=== PATIENT | female | born 1960 | race Caucasian/White ===

== ENCOUNTER 2017-01-09 09:44 | Outpatient (CLI) | payer MEDICARE, OTHER ==
--- NOTE | 2017-01-09 15:13 | MRI ---
EXAM: CERVICAL SPINE MRI WITHOUT CONTRAST: HISTORY: Cervical fusion. Cervical radiculopathy. Spondylosis. COMPARISON: 01/20/14. TECHNIQUE: Cervical spine MRI was performed without intravenous Gadolinium administration. Multisequential, mu ltiplanar imaging is performed. FINDINGS: Redemonstration of cervical fusion changes at C4, C5, and C6. Limited evaluation of the marrow sign al intensity due to metallic susceptibility artifact. Remaining cervical vertebrae demonstrate appr opriate T1 marrow signal intensity. No significant STIR hyperintensity to suggest vertebral body ed stacia or ligamentous injury. There is intrinsic T2 hyperintensity involving the ursula and mid brain, nonspecific. Remaining visua lized brain parenchyma is unremarkable. Cervicomedullary junction, cervical cord, and the upper thoracic cord have an overall normal size an d signal intensity. C2-C3: No significant disk-osteophyte complex. No significant central canal stenosis. Neural fora abram are patent. C3-C4: There is a broad-based disk-osteophyte complex that abuts the thecal sac. The degree of arsh tral canal stenosis is not significantly changed. Neural foramen are patent bilaterally. C4-C5: There is a central osteophyte complex that abuts the thecal sac. Mild central canal stenosi s, without T2 hyperintensity in the cord. Neural foramen are patent bilaterally. C5-C6: There is a central osteophyte complex that abuts the thecal sac. There is mild mass effect within the left hemicord, unchanged from the prior exam. There is no T2 hyperintensity in the cord. There is mild to moderate central canal stenosis. Neural foramina are patent. C6-C7: There is a broad-based disk-osteophyte complex that causes mass effect upon the thecal sac a nd effaces the ventral subarachnoid space. There is posterior element hypertrophy. Moderate centra l canal stenosis. No T2 hyperintensity in the cord. Mild bilateral foraminal narrowing. C7-T1: No significant disk-osteophyte complex. No significant central canal stenosis. Neural fora men are patent. IMPRESSION: 1. Essentially stable degenerative change of the cervical spine. 2. Stable fusion changes. POS: [facility]
--- NOTE | 2017-01-09 15:36 | MRI ---
LUMBAR SPINE MRI WITHOUT CONTRAST: History: Lumbar radiculopathy. Back pain. Comparison: None. Correlation: Lumbar spine CT without contrast. Technique: Lumbar spine MRI is performed without intravenous gadolinium administration. Multisequent ial, multiplanar imaging is performed. FINDINGS: There is appropriate T1 marrow signal intensity of the lumbar vertebrae. Lumbar spine vertebral body height is maintained. There is no fracture. No significant STIR hyperintensity to suggest vertebral body edema or ligamentous injury. There is 4.5 mm anterolisthesis of L4 upon L5. Symmetric signal intensity to the psoas muscles. Appropriate signal intensity in the visualized aurea d organs. Conus medullaris terminates at the superior endplate of L1. The overall AP diameter of the central spinal canal is narrowed secondary to congenitally fore-short ened pedicles. T12-L1: Adequate disc hydration. No significant central canal stenosis. Neural foramina are patent. L1-2: Minimal loss of disc space height and minimal disc ossification. Minimal left and right parace ntral disc bulges. Minimal posterior element hypertrophy. Overall there is minimal central canal cesar nosis. Minimal bilateral foraminal narrowing. L2-3: There is disc desiccation without significant loss of disc space height. There is a left renetta inal and extraforaminal disc bulge. Ligamentum flavum thickening and facet hypertrophy are noted. Th ere is minimal central canal stenosis. Mild right foraminal narrowing. Left neural foramen is patent . L3-4: Disc desiccation with mild loss of disc space height. Generalized disc bulge, ligamentum flavu m and facet hypertrophy results in mild central canal stenosis. There is minimal narrowing in both s ubarticular zones. There is mass effect without ossification of bilateral traversing L4 nerve roots. Mild right and left foraminal narrowing. L4-5: Disc desiccation with mild loss of disc space height. Generalized disc bulge does not result i n any significant stenosis of the thecal sac. Minimal encroachment upon both subarticular zones. Dis c material abuts but not obscure either traversing L5 nerve root. Mild to moderate bilateral foramin al narrowing. L5-S1: Disc desiccation with mild loss of disc space height. There is central subarticular disc bulg e. No significant stenosis at the thecal sac. No significant stenosis on either traversing S1 nerve root. There bilateral facet hypertrophy. Moderate right and moderate to severe left foraminal narrow ing. IMPRESSION: Degenerative changes of the lumbar spine as above. POS: [facility]
== END 2017-01-09 09:45 | disposition home or self-care (01) ==
LOC: MRI 09:44
PROVIDERS: ATTEND Specialist
DX: M43.16 Spondylolisthesis, lumbar region (principal); M47.812 Spondylosis without myelopathy or radiculopathy, cervical region; M47.816 Spondylosis without myelopathy or radiculopathy, lumbar region; Z98.1 Arthrodesis status
CPT/HCPCS: 72141; 72148

== ENCOUNTER 2017-05-20 07:51 | Outpatient (CLI) | payer MEDICARE, BC ==
--- NOTE | 2017-05-20 09:16 | RAD ---
4 VIEWS LUMBAR SPINE: Date: 05/20/17 INDICATION: Lumbar radiculopathy. FINDINGS: There is slight Grade I anterolisthesis of L4 on L5 that demonstrates no abnormal translational motio n on flexion, extension, or lateral projections. There is levoscoliosis centered at L3-4, which is li meenakshi degenerative. There is moderate multilevel disc degenerative facet osteoarthritic change. There are cholecystectomy clips within the right upper quadrant. There is scattered abdominopelvic vascular calcifications. SI joints are normal appearing. IMPRESSION: 1. Moderate spondylosis lumbar spine. 2. Grade I anterolisthesis of L4 on L5 without appreciable abnormal translational motion. POS: [facility]
--- NOTE | 2017-05-20 09:17 | RAD ---
FIVE VIEWS CERVICAL SPINE: INDICATION: History of myelopathy of the cervical spine. FINDINGS: ACDF spanning C4 through C6 is not appreciably changed from an MR examination dated 01/09/17. Spinal alignment is within normal limits. Mild spondylosis is similar. No abnormal translational motion is demonstrated. Prevertebral soft tissues are normal-appearing. IMPRESSION: 1. Stable postoperative spine. 2. No abnormal translational motion. POS: [facility]
--- NOTE | 2017-05-20 11:31 | RAD ---
BARIUM SWALLOW ESOPHAGRAM SINGLE COLUMN: HISTORY: A 57-year-old female with dysphagia. TECHNIQUE: Administration of thick liquid barium, thin liquid barium, and barium tablet with water. Prone BLAND a dministration of thin liquid barium through a straw. FINDINGS: There is ACDF hardware at C4-5-6. Moderate-sized anterior bridging osteophytes encroach upon the hyp opharynx at the C3-4 level. There is much residue coating the pharyngeal mucosal space, worse with t hick liquid barium than with thin liquid barium. Penetration is visualized with both thick liquid ba rium and thin liquid barium, but no aspiration during the time of this study. No cough elicited by t he penetration. The residue is not only in the vallecula and piriform sinuses, but throughout the ph aryngeal mucosal space; and is especially prominent after swallow of thick liquid barium. The barium tablet passes easily into the stomach without holdup. The esophagus has normal distensibility and m otility. No moderate-sized or large hiatal hernia. Gastric volume is very small, due to bariatric b ypass surgery. IMPRESSION: 1. Significant residue throughout the pharyngeal mucosal surface, especially with thick liquid bariu m. 2. Positive for penetration. 3. The esophagus is essentially normal. 4. Status post anterior cervical diskectomy and fusion at C4-5-6. 5. Moderate-sized anterior bridging osteophytes at C3-4 at least mildly encroaching upon the hypopha rynx. 6. Status post bariatric surgery: gastric bypass. POS: [facility]
--- NOTE | 2017-05-20 12:01 | MRI ---
MRI OF THE THORACIC SPINE WITHOUT CONTRAST: INDICATION: History of thoracic spine pain without injury. COMPARISON: Prior exam dated 12/16/13. FINDINGS: The small right paracentral protrusion at T7-T8 persists. No suspicious cord signal abnormality is e vident. No appreciable neural foraminal narrowing is demonstrated. Bone marrow signal intensity earline ears within normal limits. No acute fracture is demonstrated. IMPRESSION: 1. Stable right paracentral disk protrusion at T7-T8. 2. No acute fracture is evident. No neural foraminal narrowing is demonstrated. POS: [facility]
== END 2017-05-20 07:52 | disposition home or self-care (01) ==
LOC: RAD 07:51
PROVIDERS: ATTEND Surgery
DX: R13.10 Dysphagia, unspecified (principal); M47.26 Other spondylosis with radiculopathy, lumbar region; M43.16 Spondylolisthesis, lumbar region; M51.24 Other intervertebral disc displacement, thoracic region; M50.00 Cervical disc disorder with myelopathy, unspecified cervical region; M25.78 Osteophyte, vertebrae; Z98.1 Arthrodesis status; Z98.84 Bariatric surgery status
CPT/HCPCS: 72050; 72110; 72146; 74220

== ENCOUNTER 2017-07-08 09:08 | Inpatient (IN) | payer MEDICARE, BC ==
[2017-07-08] MEDS ORDERED: Morphine 4 MG/ML VIAL ONE ×2 (10:07→12:59)
[2017-07-08] MEDS ORDERED: Ondansetron HCl/PF 4 MG/2 ML Vial ONE (10:08)
[2017-07-08 10:13] LABS: #Lymphocytes 0.7 thou/uL (1.20-3.40); #Monocytes 0.7 thou/uL (0.11-0.59); #Neutrophils 9.1 thou/uL (1.40-6.50); %Basophils 0.1 % (0.0-1.0); %Eosinophils 0.1 % (0.0-10.0); %Lymphocytes 6.3 % (21.0-51.0); %Monocytes 6.7 % (0.0-10.0); %Neutrophils 86.9 % (42.0-75.0); Hemoglobin 11.1 g/dL (12.0-16.0); Mean Corpuscular HGB CONC 30.4 g/dL (32.0-36.0); Mean Corpuscular Hemoglobin 26.8 pg (27.0-31.0); Mean Corpuscular Volume 88.4 fl (81.0-99.0); Mean Platelet Volume 8.3 fL (7.4-10.4); Platelet Count 272 thou/uL (130-400); RBC Distribution Width 14.3 % (11.5-14.5); Red Blood Cell (RBC) Count 4.14 mill/uL (4.20-5.40); White Blood Cell (WBC) Count 10.5 thou/uL (4.8-10.8)
[2017-07-08 10:33] LABS: ALT (SGPT) 11 U/L (8-55); AST (SGOT) 13 U/L (5-34); Albumin 3.7 g/dL (3.5-5.0); Alkaline Phosphatase 139 U/L (40-150); Anion Gap 12 mmol/L (10-20); BUN (Urea Nitrogen) 15 mg/dL (9.8-20.1); Bilirubin, Total 0.9 mg/dL (0.2-1.2); CK (CPK) 27 U/L (29-168); Calc. Creatinine Clearance 0 mL/min (70-130); Calcium 9.1 mg/dL (7.8-10.44); Carbon Dioxide 27 mmol/L (22-29); Chloride 100 mmol/L (98-107); Estimated GFR-MDRD 64; Globulin 3.1 g/dL (2.4-3.5); Glucose 294 mg/dL (70-105); Lipase 15 U/L (8-78); Potassium 4.2 mmol/L (3.5-5.1); Protein, Total 6.8 g/dL (6.0-8.3); Sodium 135 mmol/L (136-145)
[2017-07-08 10:44] LABS: CKMB 0.7 ng/mL (0-6.6); Troponin I Less than 0.010 ng/mL (< 0.028)
[2017-07-08 10:55] LABS: Bilirubin Negative (Negative); Blood, Urine Large (Negative); Glucose, Urine (Dipstick) 500 mg/dL (Negative); Leukocyte Small (Negative); Nitrite Positive (Negative); Protein, Urine (Dipstick) Trace mg/dL (Neg-Trace); Specific Gravity, Urine 1.015 (1.005-1.030); Urobilinogen 0.2 mg/dL (0.2-1.0)
[2017-07-08 10:58] LABS: Clarity Hazy (Clear)
[2017-07-08 11:09] LABS: Bacteria/HPF 3+ HPF (None Seen); Hyaline Casts/LPF 0-3 HYALINE CAST LPF (0-3 Hyaline); RBC/HPF GREATER THAN 50-TNTC HPF (0-3); Squamous Epithelial 0-3 HPF (0-3)
--- NOTE | 2017-07-08 12:16 | CT ---
CT ABDOMEN AND PELVIS WITH IV CONTRAST: 07/08/2017 HISTORY: Constant abdominal cramping and nausea since yesterday. FINDINGS: There is mild to moderate right hydronephrosis and hydroureter, with an approximately 8 mm calculus s een in the mid right ureter, at the level of the inferior aspect of the right sacroiliac joint. This calcification measures approximately 10 mm in length. There is right-sided perinephric stranding and suggestion of minimal enhancement of the urothelium of the proximal right ureter. Associated infect ion/pyelonephritis cannot be entirely excluded. There are nonobstructing bilateral renal calculi present. The largest calculus in the mid portion of the left kidney measures approximately 6 mm Post surgical changes of the stomach are present. Post cholecystectomy changes are noted. There is minimal dependent bibasilar atelectasis. There is an approximately 5 mm pleural-based pulmo nary nodule at the right lateral costophrenic angle. This was also partially imaged on the study obt ained on CT abdomen from 03/05/2005. The liver, spleen, pancreas, and bilateral adrenal glands demonstrate a normal CT appearance. The ur inary bladder is not completely distended. There is evidence of a hysterectomy. The appendix is normal in caliber. Mild degenerative changes are seen in the spine. IMPRESSION: 1. Obstructing right mid ureteral calculus, measuring approximately 8 mm in diameter. There is resu ltant mild to moderate hydronephrosis and hydroureter, with mild enhancement of the thompson of the prox imal ureter. There is perinephric stranding on the right. While these findings may be related to th e obstruction, ascending infection is a possibility (pyelonephritis). 2. Nonobstructing bilateral renal calculi. 3. Post surgical changes of the upper abdomen with evidence of a prior cholecystectomy. 4. Hysterectomy. The above findings were discussed with Dr. Quintero in the emergency department on 07/08/2017 at 11:36 hours. CODE CR POS: [facility]
[2017-07-08] MEDS ORDERED: D5W IVPB SCH (12:30)
[2017-07-08] MEDS ORDERED: ADMIXTURE FEE IVPB SCH (12:30)
[2017-07-08] MEDS ORDERED: CIPROFLOXACIN LACTATE IVPB SCH (12:30)
[2017-07-08] MEDS ORDERED: ISOVUE-370 76%-LOCM 1 ML ONE (13:11)
[2017-07-08] MEDS ORDERED: Iopamidol 370 76% 50 ML VIAL FS ONE (13:11)
[2017-07-08 13:48] LABS: Troponin I Less than 0.010 ng/mL (< 0.028)
[2017-07-08] MEDS ORDERED: Dextrose 5% in Water 1,000 ML IV PRN (14:48)
[2017-07-08] MEDS ORDERED: HumaLOG 300 UNITS/3 ML VIAL SC PRN (14:48)
[2017-07-08] MEDS ORDERED: Dextrose 50% Abboject 50 ML SYRINGE SLOW IVP PRN (14:48)
[2017-07-08] MEDS ORDERED: Ondansetron HCl/PF 4 MG/2 ML Vial IVP PRN (14:49)
[2017-07-08] MEDS ORDERED: Milk Of Magnesia 30 ML UDCUP PO PRN (14:49)
[2017-07-08] MEDS ORDERED: Acetaminophen 325 MG TAB PO PRN (14:49)
[2017-07-08 15:30] VITALS: BMI 37.3
[2017-07-08] MEDS: Heparin 5,000 UNITS/ML VIAL SC SCH ×2 (16:23→20:54)
[2017-07-08] MEDS: Sodium Chloride 0.9% 1,000 ML IV SCH (16:24)
[2017-07-08] MEDS ORDERED: Cyclobenzaprine 10 MG TAB PO PRN (16:29)
[2017-07-08 16:41] LABS: Troponin I Less than 0.010 ng/mL (< 0.028)
[2017-07-08] MEDS: Morphine 2 MG/ML SYRINGE SLOW IVP PRN (17:02)
[2017-07-08] MEDS ORDERED: FLU VACC QS2017-18 36 mo. & older 0.5 ML SYRINGE IM ONE (17:15)
[2017-07-08] MEDS: Gabapentin 300 MG CAP PO SCH (20:53)
[2017-07-08] MEDS: Docusate 100 MG CAP PO SCH (20:53)
[2017-07-08] MEDS: Latanoprost 0.005% Ophth Soln 2.5 ml Bottle EA EYE SCH (20:55)
--- NOTE | 2017-07-08 20:55 | CON ---
DATE OF CONSULTATION: 07/08/2017 REASON FOR CONSULTATION: 1. Right-sided 8-mm calculus, N20.1. 2. Possible pyelonephritis. HISTORY OF PRESENT ILLNESS: Ms. 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 The patient had about a 24-hour period of nausea symptoms and she reported a subjective fever. The patient was admitted via the emergency department where she had a temperature of 100.2. The patient reports right-sided lower abdominal discomfort. No actual radiation yet to the genitals. She does not report significant back pain. PAST MEDICAL HISTORY: 1. Chronic back and neck pain. 2. History of diabetes mellitus type 2 on insulin via a pump with complicating factors of neuropathy. 3. Gastroesophageal reflux disease. 4. Irritable bowel syndrome. 5. History of carpal tunnel syndrome bilaterally. 6. Gout. 7. Degenerative disk disease. 8. Migraine headache. 9. Sleep apnea. 10. Fibromyalgia. 11. History of deep venous thrombosis of the left leg x2. 12. History of seizures. PAST SURGICAL HISTORY: 1. Left total knee replacement. 2. Laparoscopic gastric bypass procedure performed in [place]. 3. ACL repair of the left knee. 4. Cervical spine fusion. 5. Bilateral bone spur removal off of her feet. 6. Hysterectomy. ALLERGIES: The patient reports allergies to HYOSCYAMINE SULFATE, METHENAMINE, METHYLENE BLUE and PENICILLINS as well as other medications. CURRENT HOME MEDICATION LIST: Includes the following, 1. Insulin via insulin pump. 2. Atorvastatin 20 mg p.o. q.a.m. 3. Hydrocodone 7/325 and Tylenol #4. 4. Neurontin 800 mg p.o. at bedtime. 5. Xalatan eyedrops to each eye. 6. Actos 30 mg p.o. q.a.m. REVIEW OF SYSTEMS: Constitutional: The patient reports subjective fever at home. She is not reporting significant chills. She does not report acute weight loss other than what was already experienced with her gastric bypass operation. HEENT: Negative. The patient does have a positive history of migraine headache and reports some migraine type symptoms today. Pulmonary: Negative. Cardiac: Negative. Gastrointestinal: Positive for irritable bowel syndrome and gastric bypass. Genitourinary: Positive past history of nephrolithiasis. The patient is uncertain of who her doctor is his name or where he might have been located. Musculoskeletal: Positive for degenerative joint disease, previous cervical spine fixation and carpal tunnel syndrome treatment bilaterally. The patient has also had a left total knee replacement. Endocrinologic: Positive history of diabetes mellitus. PHYSICAL EXAMINATION: VITAL SIGNS: The patient had a temperature of 100.2 degrees Fahrenheit in the emergency department which is a current T-max in this facility. Current temperature is 98.9, pulse 95, respirations 16, O2 saturation 96%, blood pressure is 105/51. GENERAL: This is a pleasant, heavy set white female in no distress. HEENT: Extraocular movements are intact. Sclerae are anicteric. Oropharynx is clear. NECK: Supple. The patient reports previous cervical spine surgery. She does not appear with limited range of motion significantly. LUNGS: Clear to auscultation bilaterally. CARDIAC: There is a regular, but borderline tachycardic rate. ABDOMEN: Soft, obese, and nontender nearly unnoticeable surgical incisional scars associated with a laparoscopic gastric bypass operation are present. The patient reports previous hysterectomy. I do not note significant scarring secondary to that, she reports right lower quadrant pain. BACK: There is slight positive for right costovertebral angle tenderness. EXTREMITIES: Appear within normal limits. PELVIC: Deferred to the operative suite. LABORATORY STUDIES: [place] [id number]. There is a left shift of 86.9%. The patient does have ANC of 9.1, which is elevated. The patient has had several E. coli UTIs in the past and also a coagulase negative UTI in 2017. Serum chemistries show the patient's current creatinine is 0.9 with blood urea nitrogen of 15 indicating potential prerenal status. Glucose elevated at 294. RADIOLOGIC STUDIES: A CT scan of the abdomen and pelvis was performed on 2017. This scan indicates the presence of an 8 mm calculus in the right mid to distal ureter which is several centimeters above the patient's bladder. ASSESSMENT AND PLAN: 1. Multiple medical issues and current concerns for sepsis. Patient will be treated with appropriate IV antibiotics as ordered by the hospitalist. 2. An 8-mm ureteral calculus, this is not an acute emergency. The patient may undergo stenting or possibly ureteroscopic removal with balloon dilation and laser lithotripsy. At the present time, this is not an acute emergency and will be scheduled for 24-48 hours after the patient was achieved suitable medical stabilization. Over 70 minutes of initial consultation, assessment time was spent in the assessment and evaluation of this patient [id number]. MTDD
[2017-07-09] MEDS: Sodium Chloride 0.9% 1,000 ML IV SCH ×3 (03:24→22:56)
[2017-07-09] MEDS: HYDROcodone/Acetaminophen 7.5/325 mg Tablet PO PRN ×2 (05:18→14:56)
[2017-07-09 05:40] LABS: #Lymphocytes 1.1 thou/uL (1.20-3.40); #Monocytes 0.9 thou/uL (0.11-0.59); #Neutrophils 7.6 thou/uL (1.40-6.50); %Basophils 0.1 % (0.0-1.0); %Eosinophils 0.4 % (0.0-10.0); %Lymphocytes 11.2 % (21.0-51.0); %Monocytes 9.2 % (0.0-10.0); %Neutrophils 79.1 % (42.0-75.0); Hemoglobin 9.9 g/dL (12.0-16.0); Mean Corpuscular HGB CONC 31.3 g/dL (32.0-36.0); Mean Corpuscular Hemoglobin 27.2 pg (27.0-31.0); Mean Corpuscular Volume 86.8 fl (81.0-99.0); Mean Platelet Volume 8.1 fL (7.4-10.4); Platelet Count 228 thou/uL (130-400); RBC Distribution Width 14.3 % (11.5-14.5); Red Blood Cell (RBC) Count 3.65 mill/uL (4.20-5.40); White Blood Cell (WBC) Count 9.6 thou/uL (4.8-10.8)
[2017-07-09 05:44] LABS: Anion Gap 8 mmol/L (10-20); BUN (Urea Nitrogen) 11 mg/dL (9.8-20.1); BUN/Creatinine Ratio 12.94; Calc. Creatinine Clearance 99 mL/min (70-130); Calcium 8.6 mg/dL (7.8-10.44); Carbon Dioxide 28 mmol/L (22-29); Chloride 103 mmol/L (98-107); Estimated GFR-MDRD 69; Glucose 255 mg/dL (70-105); Phosphorus 2.8 mg/dL (2.3-4.7); Potassium 3.8 mmol/L (3.5-5.1); Sodium 135 mmol/L (136-145)
--- NOTE | 2017-07-09 07:51 | HP ---
PRIMARY CARE PHYSICIAN: Jermain Rodriguez MD PRESENTING COMPLAINT: Right flank pain. HISTORY OF PRESENT ILLNESS: Ms. Zoraida Roa is a 57-year-old female with a past medical history of nephrolithiasis, type 2 diabetes mellitus, restless leg syndrome and migraine headaches, who presents to the emergency room with a 1-day history of right flank pain, described as sharp alternating with aching, 9/10, does not radiate, increased by nothing and decreased by holding her knees up to her abd omen. She also reports fevers and chills, T-max was 102.2 degrees Fahrenheit as well as some nausea. There was no vomiting, but she did drop after giving contrast in the emergency room. In the emerge ncy room, she had a CT abdomen/pelvis done which showed an obstructing right mid urethral calculus me asuring approximately 8 mm in diameter, which resulted in mild to moderate hydronephrosis and hydrour eter. There is also some perinephric stranding on the right. She was otherwise hemodynamically stab le and did not have leukocytosis or any overt changes in her renal function. Troponin was trended an d was negative. Assessment of nephrolithiasis with hydronephrosis was made and Urology was consulted in the ER, they assessed the patient and we will see the patient as a consult on inpatient basis. N o current indication for acute intervention. PAST MEDICAL HISTORY: As stated in the HPI. PAST SURGICAL HISTORY: Gastric bypass, complete hysterectomy, left knee replacement, bilateral foot surgery for bone spurs and bilateral hand surgery for carpal tunnel syndrome. FAMILY HISTORY: Reviewed and noncontributory. SOCIAL HISTORY: She does not drink alcohol, smoke cigarettes or use illicit drugs. ALLERGIES: HYOSCYAMINE SULFATE, METHENAMINE, METHYLENE BLUE, PENICILLIN, ETC. REVIEW OF SYSTEMS: A 12-point review of system conducted was negative except as stated in HPI. HOME MEDICATIONS: Atorvastatin 20 mg daily, Flexeril 10 mg every 8 hours p.r.n., , folic acid 1 tablet daily, gabapentin 800 mg at bedtime, Humalog sliding scale with insulin pump, hydrocodone/sascha taminophen 1 tablet every 8 hours p.r.n. for pain, ibuprofen 600 mg every 6 hours p.r.n. for pain, la tanoprost 1 drop in each eyes at bedtime, Keppra 500 mg b.i.d., Tradjenta 5 mg q.a.m., omeprazole 40 mg p.r.n., pioglitazone 30 mg daily, sumatriptan succinate 50 mg p.r.n. PHYSICAL EXAMINATION: VITAL SIGNS: Stable. GENERAL: In mild distress from pain, sitting in bed. HEENT: Normocephalic, atraumatic. Not pale, anicteric. Moist mucous membranes, PERRLA, EOMI. NECK: Supple, full range of movement. RESPIRATORY: Vesicular breath sounds bilaterally. No wheezes, rales or rhonchi. CARDIOVASCULAR: S1, S2 only. No murmurs, rubs or gallops. Regular rate and rhythm. ABDOMEN: Soft. Tenderness in the right flank with CVA tenderness. No hepatosplenomegaly. No rebou nd or guarding. NEUROLOGIC: Alert and well oriented to time, place and person. No focal deficits. SKIN: Warm, dry, well perfused. MUSCULOSKELETAL: No edema. Moves all extremities spontaneously. PSYCHIATRIC: Normal mood and affect. LABORATORY DATA: CBC is largely unremarkable as well as serum chemistry. IMAGING: CT as reported in HPI. ASSESSMENT AND PLAN: 1. Acute nephrolithiasis, right flank: Associated with moderate hydronephrosis. She has been start ed on parenteral hydration, pain control with hydrocodone and IV morphine p.r.n. She will also be pl aced on IV levofloxacin daily for possible urinary tract infection. Urine done in the emergency room showed increased wbc's, nitrites and increased rbc's; therefore, she will be continued on antibiotic s pending urine culture results. 2. Type 2 diabetes mellitus, blood glucose not at goal (294 at the emergency room). She was placed on sliding scale insulin, fingerstick glucose before meals and at bedtime, diabetic diet and hypoglyc emia protocol pending confirmation of her home medications. 3. Restless leg syndrome, stable. Continue home medication. We will also obtain Urology consult to evaluate the patient while in the hospital. CODE STATUS: FULL CODE.
[2017-07-09] MEDS: Heparin 5,000 UNITS/ML VIAL SC SCH ×3 (10:31→22:55)
[2017-07-09] MEDS: Morphine 2 MG/ML SYRINGE SLOW IVP PRN (10:32)
[2017-07-09] MEDS: Docusate 100 MG CAP PO SCH ×2 (10:41→22:55)
[2017-07-09] MEDS: Atorvastatin Calcium 20 MG TAB PO SCH (10:42)
[2017-07-09] MEDS: Pioglitazone HCl 15 MG TAB PO SCH (12:30)
[2017-07-09] MEDS ORDERED: PHENYLEPHRINE-NS 100 MCG/ML 10 ML SYRINGE ONE (14:28)
[2017-07-09] MEDS ORDERED: Succinylcholine Chloride 20 MG/ML 10 ml SYRINGE FS ONE (14:28)
[2017-07-09] MEDS ORDERED: Ondansetron HCl/PF 4 MG/2 ML Vial ONE (14:28)
[2017-07-09] MEDS ORDERED: Propofol 200 MG/20 ML VIAL ONE (14:28)
[2017-07-09] MEDS ORDERED: Lidocaine 1% PF 5 ML VIAL ONE (14:28)
--- NOTE | 2017-07-09 14:32 | PDOC.PN ---
- Subjective Encounter Start Date: 07/09/17 Encounter Start Time: 09:40 Pt seen for followup re: nephrolithiasis. Denies chest pain, reports RLQ pain. - Objective Resuscitation Status: Resuscitation Status FULL:Full Resuscitation MAR Reviewed: Yes Vital Signs & Weight: Vital Signs (12 hours) Temp Pulse Resp BP BP Pulse Ox 07/09/17 12:00 99.2 F 87 18 123/58 L 97 07/09/17 07:48 98.2 F 96 16 101/56 L 93 L 07/09/17 04:00 98.7 F 91 20 124/68 96 Weight Weight 191 lb 3.2 oz I&O: 07/08/17 07/09/17 07/10/17 06:59 06:59 06:59 Intake Total 1790 Output Total 350 Balance 1440 Result Diagrams: 07/09/17 05:06 07/09/17 05:06 Additional Labs: Accuchecks 07/09/17 07/09/17 07/08/17 11:14 05:14 20:26 POC Glucose 316 H 235 H 366 H 07/08/17 16:26 POC Glucose 353 H Phys Exam - Physical Examination Obese HEENT: PERRLA, moist MMs, sclera anicteric, oral pharynx no lesions Neck: no nodes, no JVD, supple, full ROM Respiratory: no wheezing, no rales, no rhonchi, clear to auscultation bilateral Cardiovascular: RRR, no rub Gastrointestinal: soft, no distention, positive bowel sounds RLQ tenderness, no guarding or rigidity Neurological: moves all 4 limbs Psychiatric: normal affect, A&O x 3 Dx/Plan (1) Nephrolithiasis Status: Acute Comment: appareciate urology service input. (2) UTI (urinary tract infection) Status: Acute Qualifiers: Urinary tract infection type: acute cystitis Hematuria presence: without hematuria Qualified Code(s): N30.00 - Acute cystitis without hematuria Comment: continue antibiotics as below (3) Hydronephrosis Code(s): N13.30 - UNSPECIFIED HYDRONEPHROSIS Status: Acute Comment: due to nephrolithiasis (4) HTN (hypertension) Code(s): I10 - ESSENTIAL (PRIMARY) HYPERTENSION Status: Chronic Qualifiers: Hypertension type: essential hypertension Qualified Code(s): I10 - Essential (primary) hypertension Comment: Monitor vital signs, titrate antihypertensives as needed (5) Migraine Code(s): G43.909 - MIGRAINE, UNSP, NOT INTRACTABLE, WITHOUT STATUS MIGRAINOSUS Status: Chronic Qualifiers: Migraine type: unspecified Status migrainosus presence: without status migrainosus Intractability: not intractable Qualified Code(s): G43.909 - Migraine, unspecified, not intractable, without status migrainosus Comment: stable (6) Seizures Code(s): R56.9 - UNSPECIFIED CONVULSIONS Status: Suspected Comment: stable - Plan continue antibiotics, out of bed/ambulate * . Review of Systems - Review of Systems Constitutional: negative: fever, chills, sweats, weakness, malaise Respiratory: negative: Cough, Dry, Shortness of Breath, Hemoptysis, SOB with Excertion, Pleuritic Pain, Sputum, Wheezing Cardiovascular: negative: chest pain, palpitations, orthopnea, paroxysmal nocturnal dyspnea, edema, light headedness Gastrointestinal: Nausea, Vomiting, Abdominal Pain. negative: Diarrhea, Constipation, Melena, Hematochezia Genitourinary: negative: Dysuria, Frequency, Incontinence, Hematuria, Retention - Medications/Allergies Allergies/Adverse Reactions: Allergies Allergy/AdvReac Type Severity Reaction Status Date / Time hyoscyamine sulfate Allergy "i felt Verified 02/15/16 10:02 [From Urel[place]] like something was crawling all over me" methenamine [From Urelle] Allergy Verified 02/15/16 10:02 methylene blue [From [place]rel[place]] Allergy Verified 02/15/16 10:02 Penicillins Allergy "as a Verified 02/15/16 10:02 little child" phenyl salicylate Allergy Verified 02/15/16 10:02 [From Urelle] sodium phosphate Allergy Verified 02/15/16 10:02 [From Urelle] Medications: Current Medications Acetaminophen (Tylenol) 650 mg PO Q4H PRN PRN Reason: Headache/Fever or Pain Last Admin: 07/08/17 20:54 Dose: 650 mg Hydrocodone Bitart/Acetaminophen (Ford 7.5/325) 2 tab PO Q4H PRN PRN Reason: Severe Pain (7-10) Last Admin: 07/09/17 05:18 Dose: 2 tab Atorvastatin Calcium (Lipitor) 20 mg PO QAM [facility] Last Admin: 07/09/17 10:42 Dose: 20 mg Cyclobenzaprine HCl (Flexeril) 10 mg PO Q8H PRN PRN Reason: Muscle Spasm Dextrose/Water (Dextrose 50%) 25 gm SLOW IVP PRN PRN PRN Reason: Hypoglycemia Docusate Sodium (Colace) 100 mg PO BID [facility] Last Admin: 07/09/17 10:41 Dose: 100 mg Gabapentin (Neurontin) 800 mg PO [facility] Last Admin: 07/08/17 20:53 Dose: 800 mg Glucagon (Glucagon) 1 mg IM PRN PRN PRN Reason: Hypoglycemia Heparin Sodium (Porcine) (Heparin) 5,000 units SC TID [facility] Last Admin: 07/09/17 10:31 Dose: Not Given Levofloxacin 750 mg/ Device 150 mls @ 100 mls/hr IVPB 2100 [facility] Dextrose/Water (D5w) 1,000 mls @ 0 mls/hr IV .Q0M PRN; As Directed PRN Reason: Hypoglycemia Sodium Chloride (Normal Saline 0.9%) 1,000 mls @ 100 mls/hr IV .Q10H [facility] Last Admin: 07/09/17 12:30 Dose: 1,000 mls Insulin Human Lispro (Humalog) 0 units SC .MILD SLIDING SCALE PRN PRN Reason: Mild Correctional Scale Lactulose (Lactulose) 20 gm PO DAILYPRN PRN PRN Reason: Constipation Latanoprost (Xalatan 0.005% Ophth Soln) 1 drop EA EYE [facility] Last Admin: 07/08/17 20:55 Dose: Not Given Magnesium Hydroxide (Milk Of Magnesium) 30 ml PO DAILYPRN PRN PRN Reason: Constipation Morphine Sulfate (Morphine) 2 mg SLOW IVP Q4H PRN PRN Reason: Severe Pain (7-10) Last Admin: 07/09/17 10:32 Dose: 2 mg Ondansetron HCl (Zofran) 4 mg IVP Q6H PRN PRN Reason: Nausea/Vomiting Last Admin: 07/09/17 10:44 Dose: 4 mg Pantoprazole Sodium (Protonix) 40 mg PO 2100 [facility] Last Admin: 07/08/17 20:54 Dose: 40 mg Pioglitazone HCl (Actos) 30 mg PO QAM [facility] Last Admin: 07/09/17 12:30 Dose: Not Given
[2017-07-09] MEDS ORDERED: Fentanyl 100 MCG/2 ML VIAL ONE (20:41)
[2017-07-09] MEDS ORDERED: Iothalamate Meglumine 60% 50 ML VIAL FS ONE (20:56)
[2017-07-09] MEDS ORDERED: B & O ONE (21:44)
[2017-07-09] MEDS ORDERED: Promethazine HCl 25 MG/ML VIAL SLOW IVP PRN (22:06)
[2017-07-09] MEDS ORDERED: Promethazine HCl 25 MG/ML VIAL IM PRN (22:06)
[2017-07-09] MEDS ORDERED: Ondansetron HCl/PF 4 MG/2 ML Vial IVP PRN (22:06)
[2017-07-09] MEDS ORDERED: Fluconazole In NaCl,Iso-Osm 400 MG in Premix Bag 1 BAG IVPB SCH ×2 (22:30)
[2017-07-09] MEDS: Latanoprost 0.005% Ophth Soln 2.5 ml Bottle EA EYE SCH (22:33)
[2017-07-09] MEDS: Gabapentin 300 MG CAP PO SCH (22:55)
--- NOTE | 2017-07-09 22:58 | CON ---
INITIAL DATE OF CONSULTATION: 07/08/2017 DATE OF SERVICE: 07/09/2017 INITIAL REASON FOR CONSULTATION: 1. Right-sided 8 mm calculus. 2. Possible pyelonephritis. HISTORY OF PRESENT ILLNESS: Ms. 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 She had nausea as well as a subjective fever. The patient was admitted via the emergency department with a temperature of 100.2 degrees. She has a significant history of diabetes mellitus and as this controlled by insulin pump. We initially recommended medical stabilization of the patient prior to treatment of her ureteral calc ulus. PHYSICAL EXAMINATION: VITAL SIGNS: Temperature 99.1, pulse 88, respirations 16, blood pressure is 122/57. GENERAL: This is a pleasant, heavy set white female in no current distress. She reports nausea and right lower quadrant pain. HEAD, EYES, EARS, NOSE AND THROAT: Extraocular movements are intact. Sclerae are anicteric. Oropha rynx is clear. NECK: Supple. LUNGS: Clear to auscultation bilaterally. CARDIAC: There is a regular rate and rhythm. ABDOMEN: Soft, obese, nontender, although the patient reports right lower quadrant tenderness. BACK: There is really no costovertebral angle tenderness on either side today. EXTREMITIES: The patient has a KATHY hose and sequential compression devices in place, has ordered for preoperative needs. LABORATORY STUDIES: The patient's white count is now down to 9600, hemoglobin is 9.9 with hematocrit of 31.7. Blood urea nitrogen is 11 with a creatinine of 0.85, glucose remains elevated at 255. ASSESSMENT AND PLAN: 1. Concern for pyelonephritis. The patient has minor laboratory findings suggestive of pyelonephrit is, although she denies flank pain at the present time, I think most of her symptoms are due to the k idney stone. Her white count is in the normal range and she has significant improvement in her left shift over the last 24 hours. I am uncertain that this patient actually has pyelonephritis, but may have stress related factors resulting in her white cell indices changes. No culture results are avai lable at this point. 2. Right-sided obstructing 8 mm ureteral calculus. We will plan on proceeding to the operating room with this patient today for at least cystoscopy and stent placement for calculus seems amenable to i t. We may perform distal ureteroscopy with balloon dilation and laser lithotripsy. Total consultation assessment time on this patient was 35 minutes over half of which was spent with t he patient discussing her situation and coordination of care. This time is exclusive of any surgical procedures performed.
[2017-07-10] MEDS: Sodium Chloride 0.9% 1,000 ML IV SCH (08:35)
[2017-07-10] MEDS: Heparin 5,000 UNITS/ML VIAL SC SCH (08:36)
[2017-07-10] MEDS: Atorvastatin Calcium 20 MG TAB PO SCH (08:36)
[2017-07-10] MEDS: Pioglitazone HCl 15 MG TAB PO SCH (08:37)
[2017-07-10] MEDS: Docusate 100 MG CAP PO SCH (08:38)
--- NOTE | 2017-07-10 10:12 | RAD ---
RETROGRADE PYELOGRAM: Date: 07-09-17 History: Right stent placement. FINDINGS: 15 images from a right retrograde pyelogram provided. Images demonstrate residual contrast media with in the colon. Initial imaging demonstrates wire overlying the region of the right upper collecting sy stem and ureter. Later imaging demonstrates contrast medial within the right uterus which is dilated above the level of the pelvic inlet. Later imaging demonstrates balloon inflated in the ureter. A alison ble J ureteral stent is placed at the end of the procedure. IMPRESSION: Right sided retrograde pyelogram as described above. POS: NEENA
[2017-07-10 11:34] VITALS: BP 115/67; TEMP 98.2
--- NOTE | 2017-07-10 12:06 | DIS ---
DATE OF ADMISSION: 07/08/2017 DATE OF DISCHARGE: 07/10/2017 PRIMARY CARE PHYSICIAN: Dr. Jermain Rodriguez. DISCHARGE DIAGNOSES: 1. Nephrolithiasis. 2. Suspected pyelonephritis. CONSULTATIONS DURING THIS HOSPITALIZATION: Urology, Dr. Luis Connor. CONDITION OF PATIENT ON THE DAY OF DISCHARGE: Stable. I assessed Ms. Roa on the day of discharge . She denies any chest pain or shortness of breath. Vital signs are stable. S1 and S2 are heard, r egular. Lungs are clear to auscultation bilaterally. DISCHARGE MEDICATIONS: Fluconazole 200 mg daily for 1 week, levofloxacin 500 mg daily for 2 weeks. Otherwise, she is being discharged on her preadmission home medications as dictated on history and ph ysical note from 07/08/2017. HOSPITAL COURSE: Ms. Roa is a pleasant 57-year-old lady who was admitted to [facility] on 07/08/2017 for an obstructing right mid ureteral calculus measuring approximately 8 m m in diameter with resultant mild to moderate hydronephrosis and hydroureter and perinephric strandin g on the right. Pyelonephritis was also suspected. She also had nonobstructing bilateral renal calc yassine on the CT scan. She was treated with antibiotics. She was seen by Urology service. On 07/09/2017, she underwent cys toscopy, right ureteroscopy, balloon catheter placement on the right, and right laser lithotripsy. S he also had a double-J ureteral stent placed. She improved symptomatically. She is being discharged home in a stable condition. Urology service w ill follow up with her in a couple of weeks. She is also advised to follow up with her primary care physician in 3-5 days. Many thanks for allowing me to participate in your patient's care. Please feel free to contact me wi th any questions or concerns. On 07/09/2017, she had sodium 135, potassium 3.8, creatinine 0.85, white count 9600, hemoglobin 9.9, and platelet count 228,000. At the time of this dictation, her urethral fluid cultures are pending. She is advised to follow up with her primary care physician for the results of the test. DISCHARGE DESTINATION: Home. TOTAL AMOUNT OF TIME SPENT COORDINATING THIS DISCHARGE: 32 minutes.
--- NOTE | 2017-07-10 13:56 | OP ---
DATE OF HOSPITAL ADMISSION: 07/08/2017 DATE OF PROCEDURE: 07/09/2017 PREOPERATIVE DIAGNOSES: 1. Right ureteral calculus, N20.1. 2. Right pyelonephritis. 3. Right hydronephrosis. 4. Diabetes mellitus type 2 with insulin pump. 5. Morbid obesity. POSTOPERATIVE DIAGNOSES: 1. Right ureteral calculus, N20.1. 2. Right pyelonephritis. 3. Right hydronephrosis. 4. Diabetes mellitus type 2 with insulin pump. 5. Morbid obesity. 6. Impaction stricture right ureter. OPERATIVE PROCEDURES PERFORMED: 1. Cystourethroscopy with right-sided ureteroscopy and laser lithotripsy, 97915. 2. Cystourethroscopy with balloon dilation of right ureteral impaction stricture, 26593. 3. Cystourethroscopy with a right-sided stent placement, 13699. 4. Right retrograde pyelography, 24208. SURGEON: Luis Connor M.D. TURBINE INSPECTOR SURGEON: None. ANESTHESIA: General by endotracheal means. ESTIMATED BLOOD LOSS: Zero mL. SPECIMENS REMOVED: Right ureteral calculi for chemical analysis. OPERATIVE FINDINGS: 1. Patient had kidney stones recovered for chemical analysis. 2. Impaction stricture secondary to 2 stones wedged against each other in the right ureter. BRIEF HISTORY AND INDICATION FOR PROCEDURE: Ms. 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 She had progr ession of her symptoms of the right lower quadrant, also, developed apparent sepsis type symptoms wit h subjective fever at home and chills. She presented to the emergency department on 07/08/2017 and w as admitted and placed on IV antibiotic therapy as well as fluid resuscitation. Patient stabilized a dequately overnight and was brought to the operative suite today for treatment of her stones. OPERATIVE TECHNIQUE: The patient was appropriately identified in the preoperative holding area, info rmed written consent was obtained. The patient was transported to the operative suite, placed in the supine position. She was prepped and draped in usual sterile fashion after repositioning in the sup ine lithotomy position after induction of general anesthesia. Patient was cystoscopically evaluated with a 22 Thai cystoscope sheath then introduced with an obtu rator and a 30 degree lens. Panendoscopic evaluation of the patient's bladder found no stones, no ev idence of the right ureter of any efflux and no evidence of stone passage through the ureter on the r ight. Fluorographic evaluation was difficult secondary to the patient's morbid obesity, we were not able to visualize a stone. Patient then had access again to her right ureteric opening using a 0.035 angled Glidewire and a 5 Thai Pollack catheter. We advanced this to the level of the renal pelvis , placed a second wire and then performed a retrograde pyelography, which demonstrated and dilated ur eter above the level of the true pelvis. Faintly we felt we could see a possible calculus in this lo cation. We replaced the second wire and removed the Pollack catheter. We then performed a balloon d ilation over the second wire using a 6 cm x 15-Thai balloon dilator. We performed stepwise dilatio n to the level of the hydroureter. We then removed the dilation balloon and performed semi rigid ure teroscopy in the ureter. We identified impacted with a flake-like stone and a much larger ston e adjacent to it, measuring about 8 mm. Removed the smaller flake-like stone and then performed a se mi rigid ureteroscopy with laser lithotripsy of the larger stone, fragmenting it into 4 fragments. W e recovered all of the stone fragments using a 0 tip nitinol basket. These were sent for chemical an alysis. We advanced the scope at the end and did surveillance the entire ureter with the semi rigid scope. We irrigated from the upper portion. There was some flocculent material, which suggests the possibility of yeast being the patient's urine in addition to a possible microbial growth. Patient's ureter was irrigated free of particles and she was left stone free and will not require imaging befo re removal of her stent. We performed a cystoscopic evaluation and placed a 4.5 Thai x 28 cm doubl e-J ureteral stent in the patient's right ureter. A good coil was obtained in the renal pelvis and a lso in the patient's bladder. We removed the string as we anticipate indwelling time of approximatel y 10 days to 2 weeks. The patient's bladder was drained. We placed a belladonna and opioid, a 60 mg suppository per rectum at the close of the procedure. Patient tolerated the procedure well, with no significant change in her vital signs or temperature. Patient was subsequently transported to the ostoperative recovery area in good condition after extubation. COMPLICATIONS: None. SPECIMENS: Right ureteral calculi for chemical analysis.
[2017-07-16 11:20] LABS: CA Oxalate Monohydrate 90 % (.); Color Brown (.); Stone Weight 70.9 mg (.)
== END 2017-07-10 15:22 | disposition home or self-care (01) | DRG 669 ==
LOC: ERS 09:08 → T4-B 12:52
PROVIDERS: ADMIT Internal Medicine; ATTEND Internal Medicine
PROC: 0TC68ZZ Extirpation of Matter from Right Ureter, Via Natural or Artificial Opening Endoscopic (ICD-10-PCS; principal; 2017-07-08)
PROC: 0T768DZ Dilation of Right Ureter with Intraluminal Device, Via Natural or Artificial Opening Endoscopic (ICD-10-PCS; 2017-07-08)
PROC: BT1DYZZ Fluoroscopy of Right Kidney, Ureter and Bladder using Other Contrast (ICD-10-PCS; 2017-07-08)
DX: N13.2 Hydronephrosis with renal and ureteral calculous obstruction (principal); E11.40 Type 2 diabetes mellitus with diabetic neuropathy, unspecified; N30.00 Acute cystitis without hematuria; R56.9 Unspecified convulsions; I10 Essential (primary) hypertension; G43.909 Migraine, unspecified, not intractable, without status migrainosus; Z79.4 Long term (current) use of insulin; Z86.718 Personal history of other venous thrombosis and embolism; G25.81 Restless legs syndrome; Z98.84 Bariatric surgery status; Z90.710 Acquired absence of both cervix and uterus; Z96.652 Presence of left artificial knee joint; E66.01 Morbid (severe) obesity due to excess calories; Z68.37 Body mass index [BMI] 37.0-37.9, adult; Z87.442 Personal history of urinary calculi
CPT/HCPCS: 36415; 36416; 74177; 74420; 80053; 80069; 81003; 81015; 82365; 82550; 82553; 83690; 84484; 85025; 87070; 87077; 87186; 87205; 88300; 96361; 96365; 96366; 96375; 96376; A4216; C1758; C1769; J0744; J1450; J1644; J1956; J2001; J2270; J2405; J2704; J3010; Q9961

== ENCOUNTER 2018-01-13 09:25 | Outpatient (CLI) | payer MEDICARE | END 2018-01-13 09:26 | disposition home or self-care (01) | LOC: BICMAMMO 09:25 | PROVIDERS: ATTEND Family Medicine | DX: Z12.31 Encounter for screening mammogram for malignant neoplasm of breast (principal) | CPT/HCPCS: 77063; 77067 ==

== ENCOUNTER 2018-06-05 10:04 | Day surgery (SDC) | payer MEDICARE ==
[2018-06-04 14:22] VITALS: BMI 37.0
[2018-06-05] MEDS ORDERED: Bupivacaine HCl 0.5%/Epinephrine 1:200,000/PF 30 ml Vial ONE (12:10)
[2018-06-05] MEDS ORDERED: Lidocaine 2% w/Epinephrine 1:200K 20 ML VIAL ONE (12:10)
[2018-06-05] MEDS ORDERED: Sodium Chloride 0.9% 10 ML ONE (12:11)
[2018-06-05] MEDS ORDERED: Fentanyl 100 MCG/2 ML VIAL ONE (12:17)
[2018-06-05] MEDS ORDERED: Lidocaine 2% PF 5 ML VIAL ONE (12:40)
[2018-06-05] MEDS ORDERED: Levofloxacin 500 mg/D5W 100 ml Premix Bag ONE (12:54)
[2018-06-05] MEDS ORDERED: Propofol 500 MG/50 ML VIAL ONE (13:12)
[2018-06-05] MEDS ORDERED: Lidocaine 1% PF 5 ML VIAL ONE (14:34)
[2018-06-05] MEDS ORDERED: PROPOFOL 200 MG/20 ML VIAL ONE (14:34)
--- NOTE | 2018-06-05 20:39 | OP ---
DATE OF PROCEDURE: 06/05/2018 PREOPERATIVE DIAGNOSES: 1. Chronic pain syndrome. 2. Post-laminectomy syndrome. 3. Lumbar radiculopathy. POSTOPERATIVE DIAGNOSES: 1. Chronic pain syndrome. 2. Post-laminectomy syndrome. 3. Lumbar radiculopathy. PROCEDURE PERFORMED: Spinal cord stimulator battery revision, 69902. SPECIMENS REMOVED: None. BLOOD LOSS: None. DESCRIPTION OF PROCEDURE: The patient was taken to the operating room and placed prone on the operating room table. A time-out was performed. The back was prepped with ChloraPrep. Sterile drapes were applied. We anesthetized the skin above the battery pocket on the left upper buttock with 0.5% Marcaine with epinephrine. We made an incision with 10 blade scalpel and then bluntly dissected this down to the pocket. We successfully removed the battery easily. The battery was disconnected from the leads using the torque wrench. The leads were then placed to the side. We then dissected using blunt dissection laterally and anteriorly to a fatty tissue area on the lateral portion of the patient's iliac crest. The pocket was made with an inch and half of fat deep. There was a fatty tissue layer that surround the entire pocket. We then connected the leads back to the battery and torqued these down. Impedances were checked which were all good. We inserted the battery into this newly formed pocket. We then used 2-0 silk sutures x3 to close the pocket that we had just made. We then used cautery to cauterize the scar around the original pocket, so this was scarred down and not formed a seroma sutures. A 2-0 Vicryl sutures were then used to approximate the pocket thompson, so they would collapse and scarred down to avoid seroma formation. We then approximated the fascial layer with 2-0 Vicryl suture using simple interrupted stitches. This was closed in two layers. We then used 3-0 Monocryl in a subcuticular stitch to approximate the skin layer and Dermabond was used as an occlusive dressing. The impedances were then again checked after all closure and everything looked good. Battery was okay. The patient was taken to PACU under stable condition without any apparent complications noted at this time. Job ID: [id number]
== END 2018-06-05 15:10 | disposition home or self-care (01) ==
LOC: SDC 10:04
PROVIDERS: ATTEND Specialist
PROC: 0JWT0MZ Revision of Stimulator Generator in Trunk Subcutaneous Tissue and Fascia, Open Approach (ICD-10-PCS; principal; 2018-06-05)
DX: T85.840A Pain due to nervous system prosthetic devices, implants and grafts, initial encounter (principal); G89.4 Chronic pain syndrome; M96.1 Postlaminectomy syndrome, not elsewhere classified; M54.16 Radiculopathy, lumbar region; M43.16 Spondylolisthesis, lumbar region; M47.812 Spondylosis without myelopathy or radiculopathy, cervical region; M48.062 Spinal stenosis, lumbar region with neurogenic claudication; M48.02 Spinal stenosis, cervical region; M19.90 Unspecified osteoarthritis, unspecified site; G25.81 Restless legs syndrome; M79.7 Fibromyalgia; F32.9 Major depressive disorder, single episode, unspecified; E11.42 Type 2 diabetes mellitus with diabetic polyneuropathy; G47.33 Obstructive sleep apnea (adult) (pediatric); K21.9 Gastro-esophageal reflux disease without esophagitis; M10.9 Gout, unspecified; Z79.4 Long term (current) use of insulin; Z79.899 Other long term (current) drug therapy; Z88.0 Allergy status to penicillin; Z88.8 Allergy status to other drugs, medicaments and biological substances; Z86.718 Personal history of other venous thrombosis and embolism; Z98.890 Other specified postprocedural states; Z98.84 Bariatric surgery status
CPT/HCPCS: 36416; J0670; J1956; J2001; J2704; J3010; J3490

== ENCOUNTER 2018-10-27 12:55 | Emergency (ER) | payer MEDICARE ==
--- NOTE | 2018-10-27 14:02 | RAD ---
Left shoulder 3 views HISTORY: Fall. Left shoulder injury. COMPARISON: 10/04/2016. FINDINGS: Acromioclavicular and glenohumeral alignment are maintained. Mild osteophytosis. No acute f racture, dislocation, or aggressive osseous erosions. IMPRESSION: No acute osseous abnormalities are demonstrated.
--- NOTE | 2018-10-27 14:37 | RAD ---
LEFT HIP 2 VIEWS: Date: 10/27/18 HISTORY: Fall, left hip pain. FINDINGS/IMPRESSION: Comparison made with exam of 10/04/16. No acute fracture or dislocation is seen. POS: OFF
[2018-10-27] MEDS ORDERED: Acetaminophen 500 MG TAB ONE (15:18)
== END 2018-10-27 15:21 | disposition home or self-care (01) ==
LOC: ERS 12:55
DX: S70.02XA Contusion of left hip, initial encounter (principal); S40.012A Contusion of left shoulder, initial encounter; E11.9 Type 2 diabetes mellitus without complications; F41.9 Anxiety disorder, unspecified; F32.9 Major depressive disorder, single episode, unspecified; Z79.899 Other long term (current) drug therapy; Z79.4 Long term (current) use of insulin; W19.XXXA Unspecified fall, initial encounter

== ENCOUNTER 2018-12-01 12:46 | Outpatient (CLI) | payer MEDICARE ==
--- NOTE | 2018-12-01 17:04 | BD ---
DEXA BONE DENSITY SCAN: 12/01/2018 HISTORY: Postmenopausal female undergoing screening for osteoporosis. COMPARISON: None. FINDINGS: BMD (g/cm2) T-SCORE RIGHT FEMORAL NECK: 0.695 -1.4 TOTAL PROXIMAL RIGHT FEMUR: 0.895 -0.4 LEFT FEMORAL NECK: 0.755 -0.8 TOTAL PROXIMAL LEFT FEMUR: 0.927 -0.1 The FRAX-WHO fracture assessment reports a 10 year fracture risk for major osteoporotic fracture at 1 3-14% and for hip fracture at 0.3-0.5% in an untreated patient. IMPRESSION: Osteopenia of the right femoral neck, correlating with a moderately increased risk for fracture. Transcribed Date/Time: 12/01/2018 5:46 PM
== END 2018-12-01 12:47 | disposition home or self-care (01) ==
LOC: BICMRI 12:46
PROVIDERS: ATTEND Family Medicine
DX: Z13.820 Encounter for screening for osteoporosis (principal); Z78.0 Asymptomatic menopausal state; M85.851 Other specified disorders of bone density and structure, right thigh
CPT/HCPCS: 77080

== ENCOUNTER 2019-04-20 11:12 | Outpatient (CLI) | payer MEDICARE ==
--- NOTE | 2019-04-20 11:40 | RAD ---
THREE VIEWS LUMBAR SPINE: HISTORY: Lumbar spondylolisthesis. COMPARISON: None. FINDINGS: Five lumbar-type vertebrae. Mild loss of vertebral body height along the superior plate of L4 with sc lerosis suggesting a chronic process. Definite acute fracture is not appreciated. Nevertheless, clinical correlation is essential. Hypertrophic changes of posterior elements at L3-L4, L4-L5 and L5-S1. Dorsal column stimulator is noted. Spondylolisthesis: L4-L5: Neutral 4 mm of anterolisthesis; flexion 4.8 mm of anterolisthesis; extension 5.8 mm of lynda listhesis. IMPRESSION: 1. Grade 1 anterolisthesis of L4 upon L5. 2. Mild loss of vertebral body height along the superior endplate of L4 with sclerosis suggesting a c hronic process. Correlate clinically. Transcribed Date/Time: 04/20/2019 11:53 AM
--- NOTE | 2019-04-20 13:28 | RAD ---
AP PELVIS: Date: 04/20/2019 HISTORY: Pelvic pain. FINDINGS: There are arthritic changes of the lower lumbar spine with mild arthritic changes of both hips. Pelvi c ring intact without evidence of fracture. IMPRESSION: No acute change. POS: ZAIN
== END 2019-04-20 11:13 | disposition home or self-care (01) ==
LOC: RAD 11:12
PROVIDERS: ATTEND Nurse Practitioner Family
DX: M43.16 Spondylolisthesis, lumbar region (principal); R29.890 Loss of height; G95.89 Other specified diseases of spinal cord
CPT/HCPCS: 72100; 72170

== ENCOUNTER 2019-05-08 13:05 | Outpatient (CLI) | payer MEDICARE ==
--- NOTE | 2019-05-08 14:48 | CT ---
CT lumbar spine noncontrast HISTORY: Low back pain. Bilateral leg radiculopathy. COMPARISON: 10/04/2016. FINDINGS: Images including the retroperitoneum show small calcifications within nondilated calyces at the inferior pole left kidney. There is calcification in the aorta. Vertebral body heights are maintained. Minimal compression of the L4 superior endplate has developed since the prior CT exam but is stable c ompared to the radiographs from 04/20/2019. Dorsal column stimulator leads enter the posterior aspect of the central spinal canal at the T12-L1 l evel and a second to the thoracic spine. T12-L1: Mild osteophytosis. Central canal and neural foramina are patent. L1-2: Mild posterior disc bulge. Circumferential degenerative changes moderate stenosis of the centra l canal. Moderate bilateral foraminal stenoses. L2-3: Disc space narrowing. Mild posterior disc bulge and circumferential degenerative changes. Mild to moderate stenosis of the central canal. Moderate right and mild left foraminal stenoses. L3-4: Disc space narrowing and minimal degenerative retrolisthesis. Posterior disc bulge and circumfe rential degenerative changes. Moderate to severe stenosis of the central canal. Moderate stenosis of each neural foramen. L4-5: Disc space narrowing. Grade 1 degenerative spondylolisthesis. Posterior bulge of the interverte bral disc and circumferential degenerative changes. Mild to moderate stenosis of the central canal. Moderate right and severe left foraminal stenoses. L5-S1: Disc space narrowing. Mild posterior disc bulge. Slight effacement of the thecal sac without s ignificant central canal stenosis. Degenerative changes with severe bilateral foraminal stenoses. IMPRESSION: Mild compression of the L4 superior endplate is stable compared to the 04/20/2019 radiograp hs. Exact age indeterminate. Multilevel degenerative changes throughout the lumbar spine, with central canal and foraminal stenose s as detailed above, most severe at the left L4-5 neural foramen. Clinical correlation regarding the left L4 dermatome is required. Small nonobstructing left renal calculi. Atherosclerosis.
== END 2019-05-08 13:06 | disposition home or self-care (01) ==
LOC: BICCT 13:05
PROVIDERS: ATTEND Specialist
DX: M43.16 Spondylolisthesis, lumbar region (principal); M47.816 Spondylosis without myelopathy or radiculopathy, lumbar region; M48.061 Spinal stenosis, lumbar region without neurogenic claudication; N20.0 Calculus of kidney; I70.90 Unspecified atherosclerosis
CPT/HCPCS: 72131

== ENCOUNTER 2019-05-28 10:37 | Outpatient (CLI) | payer MEDICARE ==
--- NOTE | 2019-05-28 14:52 | NM ---
WHOLE BODY BONE SCAN: 05/28/19 HISTORY: Wedge compression fracture of unspecified lumbar vertebra, back pain. COMPARISON: CT lumbar spine of 05/08/2019. RADIOPHARMACEUTICAL: 28.4 millicuries of technetium 99m-MDP injected intravenously. FINDINGS: There is some mild increased uptake involving the body of L4 consistent with compression fracture. Th ere is also mildly increased uptake at L3 level. This is likely due to degenerative change. Increased uptake in the shoulders, elbows, wrists, right knee and both feet are consistent with degen erative changes. There are postop changes of left knee arthroplasty. Tracer excretion through the kid neys is within normal limits. IMPRESSION: Mild increased uptake involving the L4 vertebral body consistent with a recent/healing compression fr acture. POS: OFF
== END 2019-05-28 10:38 | disposition home or self-care (01) ==
LOC: NM 10:37
PROVIDERS: ATTEND Nurse Practitioner Family
DX: S32.040D Wedge compression fracture of fourth lumbar vertebra, subsequent encounter for fracture with routine healing (principal); R94.8 Abnormal results of function studies of other organs and systems
CPT/HCPCS: 78306; A9503

== ENCOUNTER 2019-07-29 14:16 | Inpatient (IN) | payer BC, MEDICARE ==
[~2019-07-29 14:16] MED LIST: Ketorolac Tromethamine 30 MG/ML VIAL ONE; Lidocaine 1% PF 5 ML VIAL ONE; Ondansetron PF 4 MG/2 ML Vial ONE; PROPOFOL 200 MG/20 ML VIAL ONE; Rocuronium Bromide 10 MG/ML (10ML VIAL) ONE; Succinylcholine Chloride 20 MG/ML 10 ml SYRINGE FS ONE
[2019-07-29] MEDS ORDERED: Ondansetron PF 4 MG/2 ML Vial ONE (14:47)
[2019-07-29] MEDS ORDERED: Fentanyl 100 MCG/2 ML VIAL ONE ×3 (14:47→18:47)
[2019-07-29 14:56] LABS: #Basophils 0.1 thou/uL (0.0-0.2); #Eosinphils 0.3 thou/uL (0.0-0.7); #Lymphocytes 1.6 thou/uL (1.20-3.40); #Monocytes 0.7 thou/uL (0.11-0.59); #Neutrophils 8.4 thou/uL (1.40-6.50); %Basophils 0.5 % (0.0-1.0); %Eosinophils 2.5 % (0.0-10.0); %Lymphocytes 14.5 % (21.0-51.0); %Monocytes 6.4 % (0.0-10.0); %Neutrophils 76.2 % (42.0-75.0); Hemoglobin 10.5 g/dL (12.0-16.0); Mean Corpuscular HGB CONC 32.5 g/dL (32.0-36.0); Mean Corpuscular Hemoglobin 28.5 pg (27.0-31.0); Mean Corpuscular Volume 87.8 fL (78.0-98.0); Mean Platelet Volume 8.3 fL (7.4-10.4); Platelet Count 297 thou/uL (130-400); RBC Distribution Width 13.3 % (11.5-14.5); Red Blood Cell (RBC) Count 3.68 mill/uL (4.20-5.40)
[2019-07-29 15:24] LABS: ALT (SGPT) 10 U/L (8-55); AST (SGOT) 17 U/L (5-34); Albumin 3.4 g/dL (3.5-5.0); Alkaline Phosphatase 153 U/L (40-110); Anion Gap 12 mmol/L (10-20); BUN (Urea Nitrogen) 17 mg/dL (9.8-20.1); Bilirubin, Total 0.4 mg/dL (0.2-1.2); Calc. Creatinine Clearance 0 mL/min (70-130); Calcium 8.9 mg/dL (7.8-10.44); Carbon Dioxide 22 mmol/L (22-29); Chloride 109 mmol/L (98-107); Estimated GFR-MDRD 75; Globulin 2.9 g/dL (2.4-3.5); Glucose 232 mg/dL (70-105); Protein, Total 6.3 g/dL (6.0-8.3); Sodium 138 mmol/L (136-145)
--- NOTE | 2019-07-29 15:26 | RAD ---
PELVIC RADIOGRAPH: Date: 07/29/2019 PROVIDED CLINICAL HISTORY: Pain status post injury. FINDINGS: Comparison made with study dated 04/20/2019. No evidence for fracture or other acute osseous abnormality. If there is persistent clinical concern, conservative management and follow-up imaging are advised. IMPRESSION: As above. POS: RAINE
--- NOTE | 2019-07-29 15:28 | RAD ---
PORTABLE CHEST 1 VIEW: Date: 07/29/2019 Time: 1508 hours HISTORY: Fall. Chest pain. COMPARISON: 05/24/2016. FINDINGS: The heart size is normal. The lungs are well expanded without focal areas of consolidation, pneumotho races, or pleural effusions. Postop changes of metallic hardware in the lower cervical spine are agai n seen. There are numerous stimulator leads in the spine. IMPRESSION: No radiographic evidence of acute cardiopulmonary process. POS: CHAUNCEY
--- NOTE | 2019-07-29 15:30 | RAD ---
2 VIEWS LEFT HIP: Date: 07/29/2019 PROVIDED CLINICAL HISTORY: Pain status post injury. FINDINGS: Comparison with 10/27/2018. There is no evidence for fracture or other acute osseous abnormality. If there is persistent clinical concern, conservative management and follow-up imaging are advised. IMPRESSION: As above. POS: RAINE
[2019-07-29 15:43] LABS: Bilirubin Negative (Negative); Blood, Urine Negative (Negative); Clarity Turbid (Clear); Glucose, Urine (Dipstick) Normal (Negative); Leukocyte 250 Leu/uL (Negative); Nitrite 2+ (Negative); Protein, Urine (Dipstick) 20 mg/dL (Neg-Trace); RBC/HPF 0-3 HPF (0-3); Squamous Epithelial None Seen HPF (0-3); Urobilinogen Normal mg/dL (Less than 2); WBC/HPF Greater than 50 HPF (0-3)
[2019-07-29 15:44] LABS: Bacteria/HPF 1+ HPF (None Seen)
--- NOTE | 2019-07-29 16:43 | RAD ---
RADIOGRAPH RIGHT HAND 3 VIEWS: 07/29/19 HISTORY: 59-year-old female with right hand pain, more specifically in the fifth digit, after fall today. FINDINGS: No dislocation. No acute fracture identified. Diffuse osteopenia. No high grade DJD. IMPRESSION: No acute fracture identified. POS: JIN
--- NOTE | 2019-07-29 16:47 | RAD ---
TWO VIEWS LEFT KNEE: 07/29/19 PROVIDED CLINICAL HISTORY: Pain status post injury. FINDINGS: There is a markedly comminuted fracture of the distal femoral metaphyseal region with about 1.5 shaft width anterior displacement of the proximal fracture fragment with respect to the distal fracture fr agment. Post total knee arthroplasty changes are seen. IMPRESSION: Comminuted, prominently displaced distal femoral metaphyseal region fracture. POS: RAINE
--- NOTE | 2019-07-29 18:25 | HP ---
REQUESTING PHYSICIAN: Dr. Randolph. ATTENDING SURGEON: Dr. Gomez. CONSULTATIONS: Orthopedics, Dr. Begum. HISTORY OF PRESENT ILLNESS: The patient is a 59-year-old woman, who presented to the emergency department by ground EMS after sustaining a fall in a parking lot. She tripped over curb landing on her left knee. She denied syncopal episode or loss of consciousness. In the emergency department, she underwent evaluation and examination and was noted to have a left distal femur fracture that appeared to be a grade 1 open, at which time, we were asked to evaluate the patient for admission and obtain Orthopedic consultation. ALLERGIES: PENICILLIN, THE PATIENT IS UNSURE OF REACTION. SHE STATES THAT SHE HAS BEEN TOLD THAT A TINY CHILD. CURRENT MEDICATIONS: 1. Flexeril. 2. Pioglitazone. 3. Gabapentin. 4. Omeprazole. 5. Duloxetine. 6. Humalog. 7. Topamax. 8. Morphine. PAST MEDICAL HISTORY: Chronic back pain, type 2 diabetes, degenerative disk disease, depression, and anxiety. PAST SURGICAL HISTORY: Left knee surgery, gastric bypass, bilateral feet bone spur removal, cholecystectomy, cervical spine fusion, bilateral carpal tunnel release, and hysterectomy. SOCIAL HISTORY: The patient lives at home with family. She denies drug, tobacco, or alcohol use. REVIEW OF SYSTEMS: A 10-point review of systems is negative as otherwise stated. PHYSICAL EXAMINATION: VITAL SIGNS: Blood pressure 134/85, respirations 18, heart rate 94, temperature is 98, and oxygen saturation 100% on room air. HEENT: Head is normocephalic and atraumatic. Eyes, extraocular motion intact. PERRLA bilaterally. Nose, atraumatic without discharge. Oropharynx is clear. The patient does have approximately 2 mm tiny puncture/laceration under submental area of her chin. Trachea is midline. No JVD. CHEST: Clear to auscultation with good inspiratory and expiratory effort. HEART: Regular rate and rhythm. ABDOMEN: Soft, flat, nontender with active bowel sounds. EXTREMITIES: Neurovascularly intact x4. The patient has a 1-2 mm poke hole in her anterior distal thigh area consistent with a poke hole from her femoral fracture. BACK: By report is atraumatic and nontender. LABORATORY FINDINGS: White blood cell count 11.0, hemoglobin 10.5, hematocrit 32.3, platelets 297. Sodium 138, potassium 5.0, chloride 109, CO2 of 22, BUN 17, creatinine 0.78, glucose 232. LFTs are unremarkable with the exception of alkaline phosphatase 153. Urinalysis shows 2+ nitrite, positive leukocyte esterase, greater than 50 wbc's, and 1+ bacteria. RADIOGRAPHIC REPORTS: AP chest x-ray shows no radiographic evidence of acute cardiopulmonary process. AP pelvis shows no evidence of fracture or other osseous abnormality. Views of the left hip show no evidence of fracture or acute osseous abnormality. Views of the left knee show a comminuted, prominently displaced distal femoral metaphyseal region fracture just proximal to her total knee arthroplasty. Views of the right hand show no acute fracture. ASSESSMENT: 1. Status post ground level fall. 2. Grade 1 open left distal femur fracture. 3. Urinary tract infection, present on admission. 4. Acute pain secondary to trauma. PLAN: Plan will be to admit the patient to the surgical floor. She will be taken from the emergency department to the operating room. The patient was evaluated in the emergency department by Dr. Begum. Postoperatively, we will treat her urinary tract infection, do pain control, pulmonary toilet, gastritis, mechanical VTE prophylaxis. She will be evaluated by Physical Therapy in the morning and we will discuss placement likely to inpatient rehab at the appropriate time. The evaluation, examination, laboratory, and radiographic findings were discussed with Dr. Gomez in the emergency department, who evaluated the patient at that time. Job ID: [id number]
[2019-07-29] MEDS ORDERED: Ketamine 50 MG/ML (10ML VIAL) ONE (19:33)
[2019-07-29] MEDS ORDERED: HYDROmorphone 2 MG/ML VIAL ONE (19:39)
[2019-07-29] MEDS ORDERED: diphenhydrAMINE 25 MG CAP PO PRN (19:45)
[2019-07-29] MEDS ORDERED: Communication Order-Pharmacy FS SCH (19:45)
[2019-07-29] MEDS ORDERED: diphenhydrAMINE 50 MG/ML VIAL IVP PRN (19:45)
[2019-07-29] MEDS ORDERED: Zolpidem Tartrate 5 MG TAB PO PRN (19:45)
[2019-07-29] MEDS ORDERED: Naloxone HCl 0.4 mg/ml Vial IV PRN (19:45)
[2019-07-29] MEDS ORDERED: Ondansetron PF 4 MG/2 ML Vial IVP PRN ×2 (19:45→23:02)
[2019-07-29] MEDS ORDERED: HYDROmorphone 10 mg/100 ml CADD IVPB PRN (19:45)
[2019-07-29] MEDS ORDERED: Promethazine HCl 25 MG/ML VIAL IM PRN (19:45)
[2019-07-29] MEDS ORDERED: diphenhydrAMINE 50 MG/ML VIAL IM PRN (19:45)
--- NOTE | 2019-07-29 21:35 | RAD ---
Left femur 2 views intraoperative fluoroscopy HISTORY: Fracture. FINDINGS: Intraoperative fluoroscopy was provided for internal fixation as performed by Dr. Begum. Spot fluoroscopic images show long lateral compression plate and multiple screws to transfix the comminuted distal femoral fracture, in anatomic alignment.
[2019-07-29] MEDS ORDERED: Dextrose 50% Abboject 50 ML SYRINGE SLOW IVP PRN (23:02)
[2019-07-29] MEDS ORDERED: Morphine 2 MG/ML SYRINGE SLOW IVP PRN (23:02)
[2019-07-29] MEDS ORDERED: Dextrose 5% in Water 1,000 ML IV PRN (23:02)
[2019-07-29] MEDS ORDERED: Ondansetron ODT 4 MG TAB PO PRN (23:02)
[2019-07-29] MEDS ORDERED: hydrALAZINE 20 MG/ML VIAL SLOW IVP PRN (23:02)
[2019-07-29] MEDS ORDERED: Insulin Regular 300 UNITS/3 ML VIAL SC PRN (23:02)
[2019-07-29] MEDS ORDERED: HYDROcodone/Acetaminophen 5/325 mg Tablet PO PRN ×2 (23:02)
[2019-07-29] MEDS ORDERED: Famotidine 20 MG TAB PO SCH (23:15)
[2019-07-29 23:24] VITALS: BMI 40.8
[2019-07-29] MEDS ORDERED: cefTRIAXone\\ROCEPHIN 1 GM in Sodium Chloride 0.9% 100 ML IVPB SCH (23:30)
[2019-07-30] MEDS: Ascorbic Acid 500 mg Chewable Tablet PO SCH ×3 (00:36→19:25)
[2019-07-30] MEDS: Senokot S 8.6-50 MG TAB PO SCH ×3 (00:36→19:22)
[2019-07-30] MEDS: Nitrofurantoin Monohyd/M-Cryst 100 MG CAP PO SCH ×4 (00:37→19:25)
[2019-07-30] MEDS: Sodium Chloride 0.9% 1,000 ML IV SCH ×2 (00:46→09:55)
[2019-07-30] MEDS: CEFAZOLIN 2 GM in Premix Bag 1 BAG IVPB SCH ×3 (00:47→16:51)
[2019-07-30] MEDS: Ibuprofen 600 MG TAB PO SCH ×4 (00:57→23:54)
[2019-07-30 06:11] LABS: #Eosinphils 0.1 thou/uL (0.0-0.7); #Lymphocytes 1.3 thou/uL (1.20-3.40); #Monocytes 0.7 thou/uL (0.11-0.59); #Neutrophils 6.5 thou/uL (1.40-6.50); %Basophils 0.1 % (0.0-1.0); %Lymphocytes 14.8 % (21.0-51.0); %Monocytes 7.8 % (0.0-10.0); %Neutrophils 76.3 % (42.0-75.0); Hemoglobin 8.7 g/dL (12.0-16.0); Mean Corpuscular HGB CONC 30.7 g/dL (32.0-36.0); Mean Corpuscular Hemoglobin 27.1 pg (27.0-31.0); Mean Corpuscular Volume 88.1 fL (78.0-98.0); Mean Platelet Volume 8.4 fL (7.4-10.4); Platelet Count 254 thou/uL (130-400); RBC Distribution Width 13.2 % (11.5-14.5); Red Blood Cell (RBC) Count 3.23 mill/uL (4.20-5.40); White Blood Cell (WBC) Count 8.5 thou/uL (4.8-10.8)
[2019-07-30 06:16] LABS: Hemoglobin A1c 8.2 % (4.0-6.0)
--- NOTE | 2019-07-30 06:30 | PRG ---
DATE OF SERVICE: 07/29/2019 SUBJECTIVE: Ms. Roa is a 59-year-old female with status post ground level fall. She sustained left open distal femur fracture. She underwent ORIF of left distal femur fracture later today. UTI is treated. The patient tolerated the procedure well. Postop, the patient doing good per bedside nurse. Vital signs have been stable. Urine is marginal. She developed no fever or shortness of breath. OBJECTIVE: Currently, the patient is sound asleep, comfortable, with no acute respiratory distress. I did not wake the patient up to do physical exam. ASSESSMENT: 1. Status post ground level fall. 2. Left open distal femur fracture, status post open reduction and internal fixation of left distal femur fracture. 3. Urinary tract infection, already treated. PLAN: Continue supportive care. Continue pain control. The patient will be working with physical therapy, occupational therapy tomorrow. Continue fluids due to marginal urinary output. Will adjust pain medication tomorrow. Continue MILL MANAGER for pain management for now. Job ID: [id number]
[2019-07-30 06:34] LABS: Anion Gap 10 mmol/L (10-20); BUN (Urea Nitrogen) 13 mg/dL (9.8-20.1); Calc. Creatinine Clearance 126 mL/min (70-130); Calcium 7.8 mg/dL (7.8-10.44); Carbon Dioxide 21 mmol/L (22-29); Chloride 109 mmol/L (98-107); Estimated GFR-MDRD 84; Glucose 182 mg/dL (70-105); Magnesium 1.9 mg/dL (1.6-2.6); Potassium 4.1 mmol/L (3.5-5.1); Sodium 136 mmol/L (136-145)
[2019-07-30] MEDS ORDERED: Magnesium 2 GM/50 ML 2 GM in Premix Bag 1 BAG IVPB SCH (08:45)
[2019-07-30] MEDS: Ferrous Sulfate 325 MG TAB PO SCH ×2 (09:55→16:51)
[2019-07-30] MEDS: Famotidine 20 MG TAB PO SCH ×2 (09:56→19:25)
[2019-07-30] MEDS: Polyethylene Glycol 3350 17 GM Packet PO SCH (09:56)
[2019-07-30] MEDS: Cyclobenzaprine 10 MG TAB PO PRN ×2 (10:52→19:25)
--- NOTE | 2019-07-30 12:08 | PRG ---
DATE OF SERVICE: 07/30/2019 SUBJECTIVE: The patient is hospital day 2, postop day 1, status post grade 1 left open distal femur fracture, underwent operative intervention yesterday. She has done well overnight. Her pain is being controlled currently with a ROTARY VENEER MACHINE OPERATOR. She is tolerating a diet. She has not yet worked with physical and occupational therapy. PHYSICAL EXAMINATION: VITAL SIGNS: Temperature is 99.9, heart rate 100, blood pressure 115/71, respirations 20, and oxygen saturation is 96% on room air. GENERAL: The patient is resting comfortably in bed. She is awake, alert, conversant, appropriate. HEENT: Unremarkable. LUNGS: Clear to auscultation bilaterally. HEART: Regular rate and rhythm. ABDOMEN: Soft, flat, nontender with active bowel sounds. EXTREMITIES: Neurovascularly intact x4. Postop dressing is clean, dry, and intact. LABORATORY FINDINGS: White blood cell count 8.5, hemoglobin 8.7, hematocrit 28.4, and platelets 254. Sodium 136, potassium 4.1, chloride 109, CO2 of 21, BUN 13, creatinine 0.71, glucose 182, magnesium 1.9, and phosphorus 3.0. There are no radiographs reviewed this morning. ASSESSMENT: 1. Status post ground level fall, hospital day 2. 2. Postop day 1, status post open reduction and internal fixation of a grade 1 open left distal femur fracture. 3. Urinary tract infection, present on admission, under treatment. 4. Acute pain secondary to trauma, being managed with ROTARY VENEER MACHINE OPERATOR. PLAN: Plan will be to continue supportive care, encourage physical and occupational therapy, and await final placement decision. The patient was evaluated and examined with Dr. Gomez during rounds this morning. Job ID: [id number]
--- NOTE | 2019-07-30 16:21 | OP ---
DATE OF PROCEDURE: 07/29/2019 PREOPERATIVE DIAGNOSIS: Comminuted periprosthetic distal femur fracture, left, grade 1, open. POSTOPERATIVE DIAGNOSIS: Comminuted periprosthetic distal femur fracture, left, grade 1, open. PROCEDURE PERFORMED: 1. Open reduction and internal fixation of left distal femoral periprosthetic fracture. 2. Irrigation and debridement of left distal femur. ANESTHESIA: General. COMMERCIAL DEVELOPMENT MANAGER: Elpidio Mendieta PA-C. ESTIMATED BLOOD LOSS: 200 mL. IMPLANTS: Synthes 4.5 mm variable angle curved condylar plate, 14 hole. COMPLICATIONS: None. DRAINS: None. SPECIMEN: None. OUTCOME: Stable fixation. INDICATIONS FOR PROCEDURE: Ms. Roa is a 59-year-old lady, status post total knee arthroplasty with Dr. Johnathan Fritz. She reports that she sustained a ground-level fall sustaining fracture of her distal femur. After discussion with the patient including risks and benefits, we decided to proceed with open reduction and internal fixation as well as irrigation and debridement on an urgent basis given that this fracture is open. Informed consent has been obtained. I believe all questions have been answered. DESCRIPTION OF PROCEDURE: The patient was brought to the operating room and a time-out was performed followed by induction of general anesthesia. The patient was positioned supine on the OR table and a sterile prep and drape was performed of the left lower extremity. Next, a lateral skin incision was made starting at about the level of the knee joint line laterally and extending proximally along the lateral aspect of the thigh. After skin was sharply incised, dissection was carried down through the subcutaneous fat exposing the IT band. This was incised in line with the skin incision and reflected anteriorly and posteriorly revealing the underlying vastus lateralis. This was swept anteriorly providing access to the lateral femoral condyle as well as distal lateral femur. At this point, a thorough irrigation was performed with Pulsavac. She was found to have a small 1 cm puncture wound at the anterior thigh, where the shaft fragment did protrude through the skin. No foreign debris was encountered. Following the thorough irrigation, the fracture was reduced based on the lateral cortex alignment. Once reduced, held in place with a large K-wire. Next, a 14-hole curved condylar plate was passed through this incision along the lateral cortex of the femur in a minimally invasive fashion up to just below the level of the lesser trochanter. Once appropriately positioned, it was provisionally held in place with a K-wire through the center hole at the distal extent of the plate and then additional wire was placed at the proximal most hole using percutaneous technique. With this initial provisional placement of the plate on the lateral cortex of the femur, AP and lateral C-arm images were obtained that showed acceptable alignment of the hardware on the bone. Next, a cortical screw was passed through the plate just proximal to the main fracture line to further capture the shaft to the plate and then multiple locking screws were placed distally capturing the condyles and the intercondylar split distally. This was then followed by multiple small stab wounds proximally with insertion of multiple locking screws. At completion of this, AP and lateral C-arm images were obtained that showed acceptable alignment of the fracture and acceptable positioning of the hardware. The distal wound was then thoroughly irrigated once again and then wound closure performed. The small stab wounds were closed with trina. The distal lateral wound was closed in layers with #2 Vicryl for the IT band followed by 0 Vicryl, 2-0 Vicryl, and trina for the skin. Xeroform gauze, Webril, and Jr wrap dressing was applied to the knee and then the patient was placed in a knee immobilizer and then transferred to recovery room in stable condition. There were no complications. The patient tolerated the procedure well. Job ID: [id number]
--- NOTE | 2019-07-31 01:51 | PRG ---
DATE OF SERVICE: 07/30/2019 SUBJECTIVE: Ms. Roa is currently in surgical floor. The patient was seen on round this evening. The patient reports pain was well controlled. She has been using SUPERVISOR POLISHING approximately 3 times an hour. She is able to work with Physical Therapy and Occupational Therapy today. She tolerated with her regular diet. Her vital signs have been stable. OBJECTIVE: GENERAL: Currently, the patient is lying in bed, comfortable with no acute respiratory distress. VITAL SIGNS: Stable. LUNGS: Clear bilaterally. HEART: Regular rate and rhythm ABDOMEN: Soft, nondistended. EXTREMITIES: Neurovascularly intact x4. Postop dressing clean, dry, intact. ASSESSMENT: 1. Status post ground level fall. 2. Left distal femur fracture, status post open reduction and internal fixation of left distal femur fracture. 3. Urinary tract infection . PLAN: Continue supportive care. Continue pain control. Continue working with Physical Therapy and Occupational Therapy. Await placement plan. Job ID: [id number] MTDD
[2019-07-31] MEDS: Ferrous Sulfate 325 MG TAB PO SCH ×2 (08:05→16:15)
[2019-07-31] MEDS: Senokot S 8.6-50 MG TAB PO SCH ×2 (08:05→21:30)
[2019-07-31] MEDS: Ascorbic Acid 500 mg Chewable Tablet PO SCH ×2 (08:05→21:30)
[2019-07-31] MEDS: Famotidine 20 MG TAB PO SCH ×2 (08:05→21:30)
[2019-07-31] MEDS: Polyethylene Glycol 3350 17 GM Packet PO SCH (08:06)
[2019-07-31] MEDS: Nitrofurantoin Monohyd/M-Cryst 100 MG CAP PO SCH ×2 (08:06→21:28)
[2019-07-31] MEDS: Ibuprofen 600 MG TAB PO SCH ×3 (08:06→23:59)
[2019-07-31] MEDS: Cyclobenzaprine 10 MG TAB PO PRN (13:41)
[2019-07-31] MEDS: HYDROcodone/Acetaminophen 10/325 mg Tablet PO PRN (14:09)
[2019-07-31] MEDS: Gabapentin 400 MG CAP PO SCH ×2 (14:09→21:27)
--- NOTE | 2019-07-31 14:49 | PRG ---
DATE OF SERVICE: 07/31/2019 SUBJECTIVE: The patient remains on the surgical floor. She is hospital day #3, postop day #2, status post grade 1 left open distal femur fracture. She underwent open reduction and internal fixation of her left distal femoral periprosthetic fracture and irrigation and debridement of same. She tolerated this procedure well. Her pain was being controlled with ADVERTISING PROJECT MANAGER, which was discontinued this morning. She just started working with Physical and Occupational Therapy and is awaiting placement. She is tolerating a diet. PHYSICAL EXAMINATION: VITAL SIGNS: Temperature is 98.3, heart rate 100, respirations 16, oxygen saturation is 96% on room air, and blood pressure 126/73. GENERAL: The patient is currently working with therapy. They have her in a wheelchair at this time. She is awake, alert, and oriented. Bry Coma Scale is 15. HEENT: Unremarkable. RESPIRATIONS: Nonlabored. ABDOMEN: Soft, nondistended. EXTREMITIES: Neurovascularly intact x4. Postop dressing is clean, dry, and intact. LABORATORY DATA: There are no labs or radiographs to review this morning. ASSESSMENT: 1. Status post ground level fall, hospital day #3. 2. Postop day #2, status post open reduction and internal fixation, irrigation and debridement of grade 1 open left distal periprosthetic femur fracture. 3. Urinary tract infection, present on admission, under treatment. 4. Acute on chronic pain. PLAN: Plan will be to transition the patient to oral medications for pain. Continue encouraging physical and occupational therapy and await placement decision. The patient was evaluated this morning with Dr. Gomez during rounds. Job ID: [id number]
[2019-07-31] MEDS: Topiramate 100 MG TAB PO SCH (21:27)
[2019-07-31] MEDS: Morphine ER 15 MG TAB PO SCH (21:28)
[2019-07-31] MEDS: Enoxaparin Sodium 40 MG/0.4 ML SYRINGE SC SCH (21:30)
[2019-08-01] MEDS: HYDROcodone/Acetaminophen 10/325 mg Tablet PO PRN (00:01)
--- NOTE | 2019-08-01 00:50 | PRG ---
DATE OF SERVICE: SUBJECTIVE: Mrs. Roa remained in surgical floor. Patient was seen on round this evening. Patient reports pain is well controlled. She is able to work with Physical Therapy and Occupational Therapy. Patient tolerated with her regular diet. Her vital signs are stable. Patient is currently on p.o. pain medication and tolerated well. OBJECTIVE: GENERAL: Currently, patient is lying in bed comfortable with no acute respiratory distress. VITAL SIGNS: Stable. LUNGS: Clear bilaterally. HEART: Regular rate and rhythm. ABDOMEN: Soft and nondistended. EXTREMITIES: Neurovascularly intact x4. Postop dressing clean, dry, and intact. ASSESSMENT: 1. Status post ground level fall. 2. Left distal femur fracture, status post open reduction internal fixation of left distal femur fracture. 3. Urinary tract infection, treated. PLAN: Plan will be to continue supportive care. Continue pain control. Continue working with Physical Therapy and Occupational Therapy. Anticipate placement to rehab patient facility in the next 24 to 48 hours. Job ID: [id number]
[2019-08-01] MEDS: Famotidine 20 MG TAB PO SCH ×2 (09:10→21:37)
[2019-08-01] MEDS: Ascorbic Acid 500 mg Chewable Tablet PO SCH ×2 (09:12→21:32)
[2019-08-01] MEDS: Nitrofurantoin Monohyd/M-Cryst 100 MG CAP PO SCH ×2 (09:13→21:38)
[2019-08-01] MEDS: Ibuprofen 600 MG TAB PO SCH ×2 (09:13→16:54)
[2019-08-01] MEDS: Gabapentin 400 MG CAP PO SCH ×3 (09:13→21:40)
[2019-08-01] MEDS: Polyethylene Glycol 3350 17 GM Packet PO SCH (09:14)
[2019-08-01] MEDS: Senokot S 8.6-50 MG TAB PO SCH ×2 (09:19→21:38)
[2019-08-01] MEDS: Ferrous Sulfate 325 MG TAB PO SCH ×2 (09:19→16:56)
--- NOTE | 2019-08-01 19:02 | PRG ---
DATE OF SERVICE: 08/01/2019 HISTORY OF PRESENT ILLNESS: The patient remains on the surgical floor. She is hospital day 4, postop day 3 status post grade 1 left open distal femur fracture. She is currently awaiting placement; unfortunately, insurance approval did not happen before the weekend. She continues to work with Physical and Occupational Therapy. Her pain is controlled. She is tolerating a diet, and her bowel function has returned. PHYSICAL EXAMINATION: VITAL SIGNS: Temperature 98.1, heart rate 82, blood pressure 91/59, respirations 16, and oxygen saturation 97% on room air. GENERAL: The patient is resting comfortably in bed. She just returned from working with Physical Therapy. She is awake, alert, conversant, and appropriate. Bry Coma Scale is 15. HEENT: Unremarkable. LUNGS: Clear to auscultation with good inspiratory and expiratory effort. HEART: Regular rate and rhythm. ABDOMEN: Soft and nondistended with active bowel sounds. EXTREMITIES: Neurovascularly intact x4. DIAGNOSTIC STUDIES: There are no labs or radiographs to review this morning. ASSESSMENT: 1. Status post ground level fall, hospital day 4. 2. Postop day 3 status post open reduction and internal fixation and irrigation debridement of grade 1 open distal periprosthetic femur fracture. 3. Urinary tract infection, present on admission, under treatment. 4. Acute on chronic pain, stable. PLAN: Plan will be to continue supportive care. Encourage physical and occupational therapy and await placement decision. We will check a cortisol level this afternoon in light of her systolic blood pressure being in the 90s. The patient does appear to be asymptomatic from this. Job ID: [id number]
[2019-08-01] MEDS ORDERED: Hydrocortisone Sod Succ/PF 100 mg/2 ml Vial IVP SCH (19:45)
[2019-08-01] MEDS: Enoxaparin Sodium 40 MG/0.4 ML SYRINGE SC SCH (21:37)
[2019-08-01] MEDS: Topiramate 100 MG TAB PO SCH (21:38)
--- NOTE | 2019-08-01 22:08 | PRG ---
DATE OF SERVICE: 08/01/2019 SUBJECTIVE: Ms. Roa is a 59-year-old female. The patient remained in surgical floor. She was seen on rounds this evening. The patient reports she has been doing good, pain well controlled. She is able to tolerate her regular diet. Her urine is adequate, however, the patient's blood pressure is little bit soft. Cortisol level is low. The patient had been treated with Solu-Cortef. Her blood pressure improved. OBJECTIVE: GENERAL: Currently, patient lying in bed comfortable with no acute respiratory distress. VITAL SIGNS: Blood pressure is 90/50, heart rate is 90, O2 saturation 98% on room air, respiratory rate is 14. The patient awake and alert. GCS 15. LUNGS: Clear bilaterally. HEART: Regular rate and rhythm. ABDOMEN: Soft, nondistended. EXTREMITIES: Neurovascularly intact x4. ASSESSMENT: 1. Status post ground level fall. 2. Status post open reduction and internal fixation of left femur fracture. 3. Urinary tract infection, treated. PLAN: Will be continue supportive care. Continue pain control. Continue to work with Physical Therapy, Occupational Therapy. Await for placement. Anticipate discharge to rehabilitation facility or half-way home facility in the next 24 to 48 hours. Job ID: [id number]
[2019-08-01] MEDS: Morphine ER 15 MG TAB PO SCH (22:11)
[2019-08-02] MEDS: Ibuprofen 600 MG TAB PO SCH ×4 (00:41→23:49)
[2019-08-02] MEDS: Hydrocortisone Sod Succ/PF 100 mg/2 ml Vial IVP SCH ×4 (05:34→23:49)
[2019-08-02] MEDS: Insulin Regular 300 UNITS/3 ML VIAL SC PRN ×4 (05:38→20:04)
[2019-08-02] MEDS: Ferrous Sulfate 325 MG TAB PO SCH ×2 (08:27→17:11)
[2019-08-02] MEDS: Famotidine 20 MG TAB PO SCH ×2 (08:27→20:00)
[2019-08-02] MEDS: Gabapentin 400 MG CAP PO SCH ×3 (08:27→20:02)
[2019-08-02] MEDS: Senokot S 8.6-50 MG TAB PO SCH ×2 (08:27→20:01)
[2019-08-02] MEDS: Nitrofurantoin Monohyd/M-Cryst 100 MG CAP PO SCH (08:28)
[2019-08-02] MEDS: Ascorbic Acid 500 mg Chewable Tablet PO SCH ×2 (08:28→20:02)
[2019-08-02] MEDS: Polyethylene Glycol 3350 17 GM Packet PO SCH (08:40)
--- NOTE | 2019-08-02 12:51 | PRG ---
DATE OF SERVICE: 08/02/2019 SUBJECTIVE: The patient remains on the surgical floor. She is hospital day 5, postop day 4, status post open reduction and internal fixation and irrigation and debridement of a grade 1 left open distal femur fracture. She has been working with Physical and Occupational Therapy and awaiting placement. She is tolerating a diet. Her pain is controlled and her bowel function has returned. OBJECTIVE: VITAL SIGNS: Temperature is 97.9, heart rate 82, blood pressure 100/65, respirations 16, and oxygen saturation is 96% on room air. GENERAL: The patient is resting comfortably in bed. She is eating breakfast at the time of my visit. She is awake, alert, and appropriate. RESPIRATIONS: Nonlabored. ABDOMEN: Soft, nondistended. EXTREMITIES: Neurovascularly intact x4. LABORATORY DATA: There are no labs or radiographs to review this morning. ASSESSMENT: 1. Status post ground level fall, hospital day 5. 2. Postop day 4 status post open reduction and internal fixation and irrigation and debridement of grade 1 open distal periprosthetic femur fracture. 3. Urinary tract infection, present on admission, treatment completed. 4. Acute on chronic pain, stable. PLAN: Plan will be to continue supportive care. Encourage physical and occupational therapy and await final placement decision. Of note, the patient had her cortisol level checked yesterday due to her systolic blood pressure being in the 90s, it was low at 5.30, and she was started on hydrocortisone. Job ID: [id number]
[2019-08-02] MEDS ORDERED: Insulin Regular 300 UNITS/3 ML VIAL SC PRN (13:30)
[2019-08-02] MEDS: Topiramate 100 MG TAB PO SCH (20:00)
[2019-08-02] MEDS: Morphine ER 15 MG TAB PO SCH (20:02)
[2019-08-02] MEDS: Enoxaparin Sodium 40 MG/0.4 ML SYRINGE SC SCH (20:03)
--- NOTE | 2019-08-02 23:57 | PRG ---
DATE OF SERVICE: 08/02/2019 SUBJECTIVE: Ms. Roa remained in surgical floor. The patient was seen on round the evening. The patient reports pain is well controlled. She is able to tolerate her regular diet. Her urine is adequate. OBJECTIVE: VITAL SIGNS: Stable. GENERAL: Currently, patient lying in bed comfortable. No acute respiratory distress. LUNGS: Clear bilaterally. HEART: Regular rate and rhythm. ABDOMEN: Soft, nondistended. EXTREMITIES: Neurovascularly intact x4. Postop dressing and splint clean, dry, intact. ASSESSMENT: 1. Status post ground level fall. 2. Status post open reduction internal fixation of left femur fracture. 3. Urinary tract infection, treated. PLAN: Continue supportive care. Continue pain control. Continue working physical therapy and occupational therapy. Patient wished to go home with home health, and the patient also stated that her granddaughter is a nurse and be able to stay home and take care of her. Job ID: [id number]
[2019-08-03] MEDS: Hydrocortisone Sod Succ/PF 100 mg/2 ml Vial IVP SCH (02:09)
[2019-08-03] MEDS: Insulin Regular 300 UNITS/3 ML VIAL SC PRN ×3 (05:31→18:23)
[2019-08-03] MEDS: Ferrous Sulfate 325 MG TAB PO SCH ×2 (08:20→18:08)
[2019-08-03] MEDS: Ibuprofen 600 MG TAB PO SCH ×2 (08:20→18:07)
[2019-08-03] MEDS: Gabapentin 400 MG CAP PO SCH ×2 (08:21→14:12)
[2019-08-03] MEDS: Ascorbic Acid 500 mg Chewable Tablet PO SCH (08:21)
[2019-08-03] MEDS: Famotidine 20 MG TAB PO SCH (08:21)
[2019-08-03] MEDS: Senokot S 8.6-50 MG TAB PO SCH (08:21)
[2019-08-03] MEDS: Polyethylene Glycol 3350 17 GM Packet PO SCH (08:21)
[2019-08-03] MEDS: HYDROcodone/Acetaminophen 10/325 mg Tablet PO PRN ×3 (08:55→18:06)
[2019-08-03] MEDS ORDERED: Hydrocortisone Sod Succ/PF 100 mg/2 ml Vial IVP SCH (09:00)
[2019-08-03 16:18] VITALS: BP 117/71; TEMP 98.2
== END 2019-08-03 18:44 | disposition home health service (06) | DRG 481 ==
LOC: ERS 14:16 → SDC 16:45 → SURG A 17:17
PROVIDERS: ADMIT Surgery; ATTEND Surgery
PROC: 0QSC04Z Reposition Left Lower Femur with Internal Fixation Device, Open Approach (ICD-10-PCS; principal; 2019-07-30)
DX: S72.492B Other fracture of lower end of left femur, initial encounter for open fracture type I or II (principal); N39.0 Urinary tract infection, site not specified; Z68.41 Body mass index [BMI] 40.0-44.9, adult; M97.12XA Periprosthetic fracture around internal prosthetic left knee joint, initial encounter; W01.0XXA Fall on same level from slipping, tripping and stumbling without subsequent striking against object, initial encounter; F41.9 Anxiety disorder, unspecified; F32.9 Major depressive disorder, single episode, unspecified; E66.9 Obesity, unspecified; E11.9 Type 2 diabetes mellitus without complications; M19.90 Unspecified osteoarthritis, unspecified site; M54.5 Low back pain; G89.29 Other chronic pain; Z90.49 Acquired absence of other specified parts of digestive tract; Z98.84 Bariatric surgery status; Z90.710 Acquired absence of both cervix and uterus; Z88.8 Allergy status to other drugs, medicaments and biological substances; Z88.0 Allergy status to penicillin; Z79.899 Other long term (current) drug therapy; Y92.481 Parking lot as the place of occurrence of the external cause; Z79.4 Long term (current) use of insulin
CPT/HCPCS: 36415; 36416; 51701; 71045; 72170; 76000; 80048; 80053; 81003; 81015; 82533; 83036; 83735; 84100; 85025; 93005; 96361; 96365; 96375; A4353; C1713; C1769; J0690; J0696; J1170; J1650; J1720; J1815; J1885; J2001; J2405; J2704; J3010; J3475; J3490; Q0162

== ENCOUNTER 2019-12-16 10:51 | Outpatient (CLI) | payer MEDICARE ==
--- NOTE | 2019-12-16 13:20 | MMO ---
Bilateral MAMMO Bilat Screen [facility]. CLINICAL HISTORY: Patient is 59 years old and is seen for screening. The patient has no family history of breast cancer. The patient has no personal history of cancer. VIEWS: The views performed were: bilateral craniocaudal with tomosynthesis and bilateral mediolateral oblique with tomosynthesis. FILMS COMPARED: The present examination has been compared to prior imaging studies performed at [facility] on 01/13/2018, and at [facility] on 03/24/2015. This study has been interpreted with the assistance of computer-aided detection. MAMMOGRAM FINDINGS: There are scattered fibroglandular densities. Benign calcifications are noted bilaterally. There are no suspicious masses, suspicious calcifications, or new areas of architectural distortion. IMPRESSION: THERE IS NO MAMMOGRAPHIC EVIDENCE OF MALIGNANCY. A ROUTINE FOLLOW-UP MAMMOGRAM IN 1 YEAR IS RECOMMENDED. THE RESULTS OF THIS EXAM WERE SENT TO THE PATIENT. ACR BI-RADS Category 2 - Benign finding MAMMOGRAPHY NOTE: 1. A negative mammogram report should not delay a biopsy if a dominant of clinically suspicious mass is present. 2. Approximately 10% to 15% of breast cancers are not detected by mammography. 3. Adenosis and dense breasts may obscure an underlying neoplasm. Reported by: MIGUELINA GANN MD Electonically Signed: [id number]
== END 2019-12-16 10:52 | disposition home or self-care (01) ==
LOC: BICMAMMO 10:51
PROVIDERS: ATTEND Family Medicine
DX: Z12.31 Encounter for screening mammogram for malignant neoplasm of breast (principal)
CPT/HCPCS: 77063; 77067

== ENCOUNTER 2020-03-07 13:04 | Outpatient (CLI) | payer MEDICARE ==
--- NOTE | 2020-03-07 14:37 | CT ---
CT OF PELVIS PERFORMED WITHOUT CONTRAST ENHANCEMENT: HISTORY: Patient having right buttock pain since January. Patient unsure if she had possibly fallen. FINDINGS: Some mild diverticular changes of the colon without any inflammatory process. No pelvic lymphadenopa thy or mass. There is no evidence of any old or new fracture of the bony pelvic ring. There are mild arthritic ch anges of both hips with osteophytic change and mild joint space narrowing. IMPRESSION: No evidence of any acute fracture. POS: AH
--- NOTE | 2020-03-07 15:11 | CT ---
CT LUMBAR SPINE: DATE: 03/07/2020. PROVIDED CLINICAL HISTORY: Back pain. FINDINGS: Comparison is made with the study dated 05/08/2019. Five lumbar-type vertebral bodies are redemonstra rikki. Grade I anterolisthesis of L3 on L4 and L4 on L5 are redemonstrated. Vertebral body heights ap pear preserved. Dorsal column stimulator device wires are partially visualized. Interval vertebropl asty changes are seen at L4. At L1-2, there is bilateral facet arthritis and a broad disk bulge with mild central canal and subart icular narrowing. No significant foraminal narrowing apparent. At L2-3, there is bilateral facet arthritis and a mild broad disk bulge. There is no significant arsh tral canal or foraminal narrowing apparent. At L3-4, there is a broad-based pseudo bulge and bilateral facet arthritis with moderate-severe canal stenosis. There is moderate right and mild left foraminal narrowing. At L4-5, there is a broad-based disk bulge and bilateral facet arthritis. Vertebroplasty cement is n oted dorsal to the dorsal cortex of the L4 vertebral body and produces potential for impingement upon the traversing right L4 nerve root within its lateral recess. There is left subarticular narrowing at L4-5 on the basis of broad disk bulge and bilateral facet arthritis. There is mild bilateral fora patricia narrowing. At L5-S1, there is bilateral facet arthritis and a broad-based disk bulge. There is moderate-severe bilateral foraminal narrowing. IMPRESSION: 1. Interval vertebroplasty changes at L4 as described. 2. Lumbar disk and facet degenerative changes producing canal and foraminal narrowing as described, similar to slightly advanced as compared to the prior examination. POS: RAINE
== END 2020-03-07 13:05 | disposition home or self-care (01) ==
LOC: BICCT 13:04
PROVIDERS: ATTEND Specialist
DX: M84.48XA Pathological fracture, other site, initial encounter for fracture (principal); S32.000A Wedge compression fracture of unspecified lumbar vertebra, initial encounter for closed fracture; Z98.890 Other specified postprocedural states; M51.36 Other intervertebral disc degeneration, lumbar region; M48.061 Spinal stenosis, lumbar region without neurogenic claudication; M47.816 Spondylosis without myelopathy or radiculopathy, lumbar region
CPT/HCPCS: 72131; 72192; 81001; 87086

== ENCOUNTER 2020-09-27 11:31 | Outpatient (CLI) | payer MEDICARE | END 2020-09-27 11:32 | disposition home or self-care (01) | LOC: MRI 11:31 | PROVIDERS: ATTEND Specialist | DX: M47.24 Other spondylosis with radiculopathy, thoracic region (principal); M43.16 Spondylolisthesis, lumbar region; M51.15 Intervertebral disc disorders with radiculopathy, thoracolumbar region; M47.816 Spondylosis without myelopathy or radiculopathy, lumbar region; M48.061 Spinal stenosis, lumbar region without neurogenic claudication | CPT/HCPCS: 72146; 72148 ==

== ENCOUNTER 2021-01-26 10:32 | Outpatient (CLI) | payer MEDICARE | END 2021-01-26 10:33 | disposition home or self-care (01) | LOC: BICMAMMO 10:32 | PROVIDERS: ATTEND Family Medicine | DX: Z12.31 Encounter for screening mammogram for malignant neoplasm of breast (principal) | CPT/HCPCS: 77063; 77067 ==

== ENCOUNTER 2022-01-05 21:08 | Emergency (ER) | payer MEDICARE ==
[2022-01-05 22:35] LABS: #Eosinphils 0.3 thou/uL (0.0-0.7); #Monocytes 0.6 thou/uL (0.11-0.59); #Neutrophils 4.3 thou/uL (1.40-6.50); %Basophils 0.6 % (0.0-1.0); %Eosinophils 4.6 % (0.0-10.0); %Lymphocytes 27.8 % (21.0-51.0); %Monocytes 7.9 % (0.0-10.0); %Neutrophils 59.1 % (42.0-75.0); Mean Corpuscular HGB CONC 32.5 g/dL (32.0-36.0); Mean Corpuscular Hemoglobin 31.3 pg (27.0-31.0); Mean Corpuscular Volume 96.2 fL (78.0-98.0); Mean Platelet Volume 8.4 fL (7.4-10.4); Platelet Count 247 thou/uL (130-400); RBC Distribution Width 12.1 % (11.5-14.5); Red Blood Cell (RBC) Count 3.82 mill/uL (4.20-5.40); White Blood Cell (WBC) Count 7.3 thou/uL (4.8-10.8)
[2022-01-05 22:45] LABS: Bacteria/HPF 2+ HPF (None Seen); Bilirubin Negative (Negative); Blood, Urine 2+ (Negative); Clarity Turbid (Clear); Glucose, Urine (Dipstick) Normal (Negative); Ketone, Urine Negative (Negative); Leukocyte 500 Leu/uL (Negative); Nitrite 2+ (Negative); Protein, Urine (Dipstick) 30 mg/dL (Neg-Trace); Specific Gravity, Urine 1.028 (1.002-1.036); Squamous Epithelial 0-3 HPF (0-3); WBC/HPF Greater than 50 HPF (0-3)
[2022-01-05 22:48] LABS: Amphetamine Not Detected (NotDetected); Barbiturates Screen Not Detected (NotDetected); Benzodiazepine Screen Not Detected (NotDetected); Cocaine Metabolite Screen Not Detected (NotDetected); Methadone Not Detected (NotDetected); Methamphetamine Not Detected (NotDetected); Opiate Screen Detected (NotDetected); Oxycodone Screen Not Detected (NotDetected); Phencyclidine (PCP) Not Detected (NotDetected); THC/Cannabinoid Screen Not Detected (NotDetected); Tricyclic Screen Detected (NotDetected)
[2022-01-05 22:54] LABS: ALT (SGPT) 12 U/L (8-55); AST (SGOT) 37 U/L (5-34); Albumin 3.5 g/dL (3.4-4.8); Alkaline Phosphatase 130 U/L (40-110); Anion Gap 13 mmol/L (10-20); BUN (Urea Nitrogen) 18 mg/dL (9.8-20.1); Bilirubin, Total 0.5 mg/dL (0.2-1.2); Calc. Creatinine Clearance 0 mL/min (70-130); Carbon Dioxide 22 mmol/L (23-31); Chloride 109 mmol/L (98-107); Estimated GFR 80; Globulin 2.8 g/dL (2.4-3.5); Glucose 227 mg/dL (80-115); Potassium 3.8 mmol/L (3.5-5.1); Protein, Total 6.3 g/dL (5.8-8.1); Sodium 140 mmol/L (136-145)
[2022-01-05] MEDS ORDERED: cefTRIAXone\\ROCEPHIN 2 GM VIAL ONE (23:24)
== END 2022-01-06 00:30 | disposition home or self-care (01) ==
LOC: ERS 21:08
DX: N30.90 Cystitis, unspecified without hematuria (principal); R29.898 Other symptoms and signs involving the musculoskeletal system; E11.9 Type 2 diabetes mellitus without complications; Z79.4 Long term (current) use of insulin; Z79.899 Other long term (current) drug therapy
CPT/HCPCS: 80053; 80306; 81003; 81015; 84484; 85025; 86140; 93005; 96374; J0696

== ENCOUNTER 2022-02-07 10:09 | Outpatient (CLI) | payer MEDICARE | END 2022-02-07 10:10 | disposition home or self-care (01) | LOC: BICMAMMO 10:09 | PROVIDERS: ATTEND Family Medicine | DX: Z12.31 Encounter for screening mammogram for malignant neoplasm of breast (principal); Z13.820 Encounter for screening for osteoporosis; M81.0 Age-related osteoporosis without current pathological fracture; Z78.0 Asymptomatic menopausal state | CPT/HCPCS: 77063; 77067; 77080 ==

== ENCOUNTER 2022-08-10 06:28 | Day surgery (SDC) | payer MEDICARE ==
[2022-08-08 14:55] VITALS: BMI 33.0
[2022-08-10] MEDS ORDERED: fentaNYL PF 100 MCG/2 ML SYRINGE ONE ×2 (06:58→08:18)
[2022-08-10] MEDS ORDERED: Propofol 500 MG/50 ML VIAL ONE (06:59)
[2022-08-10] MEDS ORDERED: Bupivacaine HCl 0.5%/Epinephrine 1:200,000/PF 30 ml Vial ONE (07:22)
[2022-08-10] MEDS ORDERED: Levofloxacin 500 mg/D5W 100 ml Premix Bag ONE (08:12)
[2022-08-10] MEDS ORDERED: PROPOFOL 200 MG/20 ML VIAL ONE (08:23)
[2022-08-10] MEDS ORDERED: Glycopyrrolate 0.2 MG/ML 5 ML SYRINGE ONE (08:23)
[2022-08-10] MEDS ORDERED: Rocuronium Bromide 10 MG/ML (10ML VIAL) ONE (08:23)
[2022-08-10] MEDS ORDERED: NEOSTIGMINE 3 MG/3 ML SYR 3 MG/3 ML SYRINGE ONE (08:23)
[2022-08-10] MEDS ORDERED: Ondansetron PF 4 MG/2 ML Vial ONE (08:23)
[2022-08-10] MEDS ORDERED: Lidocaine 1% PF 5 ML VIAL ONE (08:23)
[2022-08-10] MEDS ORDERED: Dexamethasone 20 MG/5 ML VIAL ONE (08:23)
[2022-08-10] MEDS ORDERED: Vancomycin 1 GM VIAL ONE (08:55)
== END 2022-08-10 10:50 | disposition home or self-care (01) ==
LOC: SDC 06:28
PROVIDERS: ATTEND Specialist
PROC: 0JPT0MZ Removal of Stimulator Generator from Trunk Subcutaneous Tissue and Fascia, Open Approach (ICD-10-PCS; principal; 2022-08-10)
PROC: 00PU3MZ Removal of Neurostimulator Lead from Spinal Canal, Percutaneous Approach (ICD-10-PCS; 2022-08-10)
DX: G89.4 Chronic pain syndrome (principal); M96.1 Postlaminectomy syndrome, not elsewhere classified; M47.26 Other spondylosis with radiculopathy, lumbar region; M43.16 Spondylolisthesis, lumbar region; M47.812 Spondylosis without myelopathy or radiculopathy, cervical region; M48.02 Spinal stenosis, cervical region; G47.33 Obstructive sleep apnea (adult) (pediatric); M19.90 Unspecified osteoarthritis, unspecified site; G25.81 Restless legs syndrome; M79.7 Fibromyalgia; E11.42 Type 2 diabetes mellitus with diabetic polyneuropathy; Z86.718 Personal history of other venous thrombosis and embolism; Z79.4 Long term (current) use of insulin; Z79.84 Long term (current) use of oral hypoglycemic drugs; Z79.891 Long term (current) use of opiate analgesic; Z79.899 Other long term (current) drug therapy; Z88.0 Allergy status to penicillin; Z88.8 Allergy status to other drugs, medicaments and biological substances; Z96.41 Presence of insulin pump (external) (internal); Z98.84 Bariatric surgery status
CPT/HCPCS: J1100; J1956; J2405; J2704; J3370

== ENCOUNTER 2022-08-24 09:01 | Outpatient (CLI) | payer MEDICARE | END 2022-08-24 09:02 | disposition home or self-care (01) | LOC: SCSMRI 09:01 | PROVIDERS: ATTEND Specialist | DX: S22.000A Wedge compression fracture of unspecified thoracic vertebra, initial encounter for closed fracture (principal); S32.000A Wedge compression fracture of unspecified lumbar vertebra, initial encounter for closed fracture; M51.36 Other intervertebral disc degeneration, lumbar region; M48.061 Spinal stenosis, lumbar region without neurogenic claudication; M47.814 Spondylosis without myelopathy or radiculopathy, thoracic region; M51.34 Other intervertebral disc degeneration, thoracic region; M51.25 Other intervertebral disc displacement, thoracolumbar region; M48.05 Spinal stenosis, thoracolumbar region; M48.07 Spinal stenosis, lumbosacral region | CPT/HCPCS: 72081; 72146; 72148 ==

== ENCOUNTER 2024-02-10 09:23 | Outpatient (CLI) | payer MEDICARE | END 2024-02-10 09:24 | disposition home or self-care (01) | LOC: BICMAMMO 09:23 | PROVIDERS: ATTEND Family Medicine | DX: Z78.0 Asymptomatic menopausal state (principal); M81.0 Age-related osteoporosis without current pathological fracture | CPT/HCPCS: 77080 ==

== ENCOUNTER 2024-02-15 05:29 | Emergency (ER) | payer MEDICARE ==
[2024-02-15] MEDS ORDERED: Morphine 4 MG/ML VIAL ONE (05:59)
[2024-02-15] MEDS ORDERED: Ondansetron PF 4 MG/2 ML Vial ONE (06:00)
[2024-02-15 06:04] LABS: #Basophils 0.05 10x3/uL (0.0-0.2); %Basophils 0.7 % (0.0-1.0); %Eosinophils 5.8 % (0.0-10.0); %Lymphocytes 28.7 % (21.0-51.0); %Monocytes 8.6 % (0.0-10.0); %Neutrophils 56.1 % (42.0-75.0); Hematocrit 36.4 % (36.0-47.0); Hemoglobin 11.2 g/dL (12.0-16.0); Mean Corpuscular HGB CONC 30.8 g/dL (32.0-36.0); Mean Corpuscular Hemoglobin 28.7 pg (27.0-31.0); Mean Corpuscular Volume 93.3 fL (78.0-98.0); Platelet Count 242 10x3/uL (130-400); RBC Distribution Width 13.8 % (11.5-14.5)
[2024-02-15 06:22] LABS: ALT (SGPT) 13 U/L (8-55); AST (SGOT) 14 U/L (5-34); Alkaline Phosphatase 120 U/L (40-110); Anion Gap 10 mmol/L (10-20); BUN (Urea Nitrogen) 15 mg/dL (9.8-20.1); Bilirubin, Total 0.5 mg/dL (0.2-1.2); Calc. Creatinine Clearance 0 mL/min (70-130); Calcium 8.4 mg/dL (7.8-10.44); Carbon Dioxide 25 mmol/L (23-31); Chloride 111 mmol/L (98-107); Estimated GFR 90; Globulin 2.9 g/dL (2.4-3.5); Glucose 148 mg/dL (80-115); Potassium 3.9 mmol/L (3.5-5.1); Protein, Total 5.9 g/dL (5.8-8.1); Sodium 142 mmol/L (136-145)
[2024-02-15 06:26] LABS: Troponin I Less than 0.010 ng/mL (< 0.028)
[2024-02-15] MEDS ORDERED: Ketorolac Tromethamine 30 MG (1 mL) VIAL ONE (08:47)
[2024-02-15] MEDS ORDERED: Iopamidol-370 76% 500 ML MDV (1 ML CHARGE) ONE (15:36)
== END 2024-02-15 08:51 | disposition home or self-care (01) ==
LOC: ERS 05:29
DX: R91.1 Solitary pulmonary nodule (principal); R07.9 Chest pain, unspecified; E11.9 Type 2 diabetes mellitus without complications
CPT/HCPCS: 71275; 80053; 83880; 84484; 85025; 93005; J1885; J2272; J2405; Q9967; 36415; 96374; 96375

== ENCOUNTER 2024-02-17 17:03 | Inpatient (IN) | payer MEDICARE ==
[2024-02-17 17:27] LABS: Hematocrit 35.1 % (36.0-47.0); Hemoglobin 10.6 g/dL (12.0-16.0); Mean Corpuscular HGB CONC 30.2 g/dL (32.0-36.0); Mean Corpuscular Hemoglobin 28.9 pg (27.0-31.0); Mean Corpuscular Volume 95.6 fL (78.0-98.0); Mean Platelet Volume 11.6 fL (7.4-10.4); Platelet Count 210 10x3/uL (130-400); RBC Distribution Width 14.2 % (11.5-14.5); Red Blood Cell (RBC) Count 3.67 mill/uL (4.20-5.40)
[2024-02-17 17:42] LABS: ALT (SGPT) 104 U/L (8-55); AST (SGOT) 147 U/L (5-34); Albumin 2.6 g/dL (3.4-4.8); Alkaline Phosphatase 224 U/L (40-110); Anion Gap 21 mmol/L (10-20); BUN (Urea Nitrogen) 60 mg/dL (9.8-20.1); Bilirubin, Total 0.4 mg/dL (0.2-1.2); CK (CPK) 47 U/L (29-168); Calc. Creatinine Clearance 0 mL/min (70-130); Carbon Dioxide 14 mmol/L (23-31); Chloride 110 mmol/L (98-107); Estimated GFR 13; Globulin 2.4 g/dL (2.4-3.5); Glucose 283 mg/dL (80-115); Potassium 5.7 mmol/L (3.5-5.1); Sodium 139 mmol/L (136-145)
[2024-02-17 17:43] LABS: Analyzer IN Cardio ER; Base Excess (BEa) -12.2 mEq/L (-2.0 to +3.0); CO2 Tension 32.9 mmHg (35.0-45.0); Calcium, Ionized (arterial) 1.01 mmol/L (1.12-1.30); Carboxyhemoglobin (COHb) 0.3 gm% (0.0-3.0); Hematocrit-ABG 31 % (36.0-47.0); Hemoglobin (Hb) 10.6 g/dL (12.0-16.0); O2 Tension (PaO2), arterial 89.5 mmHg (> 80.0); Potassium - ABG Lab 5.11 mmol/L (3.70-5.30); pH, Arterial 7.246 (7.35-7.45)
[2024-02-17] MEDS ORDERED: NOREPINEPHRINE 8 MG/250 ML-D5W 250 ML ONE (17:43)
[2024-02-17 17:46] LABS: ALV-art Gradient 126.055 mmHg (0-20); Puncture Site Left Radial artery
[2024-02-17 17:50] LABS: Band 28 % (5-11); Burr Cells MODERATE= 6-15 cells HPF (0-1); Large Platelets 1.9 % (0-5); Lymphocytes 17 % (21-51); Monocytes 6 % (0-10); Neutrophil 49 % (42-75); Platelet Adequacy Comment Platelets Normal; Poikilocytosis SLIGHT = 6-15 cells HPF (0-5); Smudge Cells 1.9 %
[2024-02-17] MEDS ORDERED: Naloxone HCl 2 MG, Admixture Fee 1 EACH in Sodium Chloride 0.9% 500 ML IV SCH (18:00)
[2024-02-17 18:04] LABS: Acetaminophen Less than 10 mcg/mL (Less than 10); Alcohol Less than 10.0 mg/dL (Less than 10); Salicylate Less than 8.0 mg/dL (Less than 8.0)
[2024-02-17 18:25] LABS: Amphetamine Not Detected (NotDetected); Barbiturates Screen Not Detected (NotDetected); Benzodiazepine Screen Not Detected (NotDetected); Cocaine Metabolite Screen Not Detected (NotDetected); Methadone Not Detected (NotDetected); Methamphetamine Not Detected (NotDetected); Opiate Screen Detected (NotDetected); Oxycodone Screen Not Detected (NotDetected); Phencyclidine (PCP) Not Detected (NotDetected); THC/Cannabinoid Screen Not Detected (NotDetected); Tricyclic Screen Not Detected (NotDetected)
[2024-02-17] MEDS ORDERED: Sodium Chloride 0.9% 100 ML ONE (18:37)
[2024-02-17] MEDS ORDERED: Cefepime 2 GM VIAL ONE (18:37)
[2024-02-17 18:40] LABS: Bilirubin Negative (Negative); Blood, Urine 3+ (Negative); CAUTI Indications for Culture Alt mental st,lethar; Clarity Turbid (Clear); Glucose, Urine (Dipstick) 200 mg/dL (Negative); Ketone, Urine Negative (Negative); Leukocyte 500 Leu/uL (Negative); Nitrite Negative (Negative); Protein, Urine (Dipstick) 100 mg/dL (Neg-Trace); RBC/HPF Greater than 50 HPF (0-3); Specific Gravity, Urine 1.012 (1.002-1.036); Squamous Epithelial 0-3 HPF (0-3); Urobilinogen Normal mg/dL (Less than 2); WBC/HPF Greater than 50 HPF (0-3); Yeast-Budding Rare HPF (None Seen); pH, Urine 5.5 (5.0-9.0)
[2024-02-17 18:54] LABS: Bacteria/HPF 1+ HPF (None Seen); Transitional Epithelial 0-3 HPF (None Seen)
[2024-02-17] MEDS ORDERED: Ondansetron PF 4 MG/2 ML Vial IVP PRN (19:04)
[2024-02-17] MEDS ORDERED: Acetaminophen 325 MG TAB PO PRN (19:04)
[2024-02-17] MEDS ORDERED: Sodium Bicarb 50 MEQ/50 ML Abboject 8.4% SYRINGE ONE (19:16)
[2024-02-17] MEDS ORDERED: Glucagon 1 MG/ML KIT IM PRN (19:23)
[2024-02-17] MEDS ORDERED: Dextrose 50% Abboject 50 ML SYRINGE SLOW IVP PRN (19:23)
[2024-02-17] MEDS ORDERED: Dextrose 5% in Water 1,000 ML IV PRN (19:23)
[2024-02-17] MEDS ORDERED: Vancomycin 1 GM/200 ML (FROZEN) BAG ONE (19:26)
[2024-02-17] MEDS: Sodium Bicarb 50 MEQ/50 ML Abboject 8.4% SYRINGE IVP SCH (20:44)
[2024-02-17] MEDS: Naloxone HCl 2 MG, Admixture Fee 1 EACH in Sodium Chloride 0.9% 500 ML IV SCH (20:44)
[2024-02-17] MEDS: Sodium Bicarbonate 150 MEQ in Sterile Water 1,000 ML IV SCH (20:54)
[2024-02-17 21:00] VITALS: BMI 32.2
[2024-02-17] MEDS: Heparin 5,000 UNITS/ML VIAL SC SCH (21:15)
[2024-02-17 21:26] LABS: Lactic Acid 2.26 mmol/L (0.5-2.2)
[2024-02-17] MEDS ORDERED: Vancomycin Dose by Levels Sliding Scale (Wt 71-99) FS SCH (21:30)
[2024-02-17 21:32] LABS: Acetaminophen Less than 10 mcg/mL (Less than 10)
[2024-02-17 21:37] LABS: Troponin I 0.143 ng/mL (< 0.028)
[2024-02-17 21:43] LABS: Anion Gap 21 mmol/L (10-20); BUN (Urea Nitrogen) 62 mg/dL (9.8-20.1); Calc. Creatinine Clearance 21 mL/min (70-130); Calcium 6.9 mg/dL (7.8-10.44); Carbon Dioxide 13 mmol/L (23-31); Chloride 112 mmol/L (98-107); Estimated GFR 14; Glucose 275 mg/dL (80-115); Potassium 5.3 mmol/L (3.5-5.1); Sodium 141 mmol/L (136-145)
[2024-02-17] MEDS: Vancomycin HCl 750 MG in Sodium Chloride 0.9% 250 ML 250 ML IVPB SCH (22:06)
[2024-02-17] MEDS: WATER IV SCH ×2 (22:53)
[2024-02-17] MEDS: ACETYLCYSTEINE IV SCH ×2 (22:53)
[2024-02-17] MEDS: DEXTROSE 5% IV SCH ×2 (22:53)
[2024-02-17] MEDS: Insulin Lispro 100 UNIT/ML 10 ML VIAL SC PRN (23:57)
[2024-02-18 00:51] LABS: Actual Bicarbonate (HCO3v) 18.9 mEq/L (22-28); Base Excess -5.9 mEq/L (-2.0 to +3.0); Calcium, Ionized (venous) 0.84 mmol/L (1.16-1.32); Chloride (VBG) 108 mmol/L (98-106); Hematocrit-VBG 31 % (36.0-47.0); Hemoglobin (Hb) 10.6 g/dL (11.7-16.0); Potassium (VBG) 5.28 mmol/L (3.70-5.30); pH (venous) 7.352 (7.32-7.43)
[2024-02-18 01:10] LABS: Lactic Acid 1.55 mmol/L (0.5-2.2)
[2024-02-18 01:29] LABS: HBsAg Index 0.42 S/CO (0-0.99); Hep A IgM AB NONREACTIVE (NonReactive); Hep A IgM S/CO 0.14 S/CO (0-0.79); Hep B Core IgM Index 0.08 S/CO (0-0.79); Hep B Surf Ag NONREACTIVE S/CO (NonReactive); Hep C IgG Ab NONREACTIVE S/CO (NonReactive); Hepatitis B Core IgM Abs NONREACTIVE S/CO (NonReactive)
[2024-02-18 05:59] LABS: Hematocrit 30.7 % (36.0-47.0); Hemoglobin 9.7 g/dL (12.0-16.0); Mean Corpuscular HGB CONC 31.6 g/dL (32.0-36.0); Mean Corpuscular Hemoglobin 28.8 pg (27.0-31.0); Mean Corpuscular Volume 91.1 fL (78.0-98.0); Platelet Count 197 10x3/uL (130-400); RBC Distribution Width 14.4 % (11.5-14.5); Red Blood Cell (RBC) Count 3.37 mill/uL (4.20-5.40)
[2024-02-18] MEDS: Cefepime 1 GM in Sodium Chloride 0.9% 100 ML IVPB SCH (06:18)
[2024-02-18] MEDS: Sodium Bicarbonate 150 MEQ in Dextrose 5% in Water 1,000 ML IV SCH (06:20)
[2024-02-18 06:37] LABS: Band 29 % (5-11); Burr Cells SLIGHT = 2-5 cells HPF (0-1); Lymphocytes 12 % (21-51); Monocytes 4 % (0-10); Neutrophil 55 % (42-75); Platelet Adequacy Comment Platelets Normal; Polychromasia SLIGHT = 2-3 cells HPF (0-2)
[2024-02-18 06:52] LABS: ALT (SGPT) 76 U/L (8-55); AST (SGOT) 61 U/L (5-34); Albumin 2.2 g/dL (3.4-4.8); Alkaline Phosphatase 172 U/L (40-110); Anion Gap 18 mmol/L (10-20); BUN (Urea Nitrogen) 66 mg/dL (9.8-20.1); Bilirubin, Total 0.3 mg/dL (0.2-1.2); Calc. Creatinine Clearance 21 mL/min (70-130); Calcium 6.6 mg/dL (7.8-10.44); Carbon Dioxide 18 mmol/L (23-31); Chloride 107 mmol/L (98-107); Estimated GFR 13; Globulin 2.7 g/dL (2.4-3.5); Glucose 221 mg/dL (80-115); Magnesium 2.1 mg/dL (1.6-2.6); Potassium 4.8 mmol/L (3.5-5.1); Protein, Total 4.9 g/dL (5.8-8.1); Sodium 138 mmol/L (136-145)
[2024-02-18] MEDS: FLU (Fluarix Triv) TS24-25(6MOS UP)/PF 45 MCG/0.5 ML Syringe IM ONE (10:00)
[2024-02-18] MEDS: Insulin Lispro 100 UNIT/ML 10 ML VIAL SC PRN (11:52)
[2024-02-18 13:57] LABS: Legionella Urinary Ag Negative (Negative); Strep pneumo Urine Ag NEGATIVE (NEGATIVE)
[2024-02-18 21:19] LABS: Vancomycin, Trough 18.2 ug/mL
[2024-02-19 05:22] LABS: #Basophils Less than 0.03 10x3/uL (0.0-0.2); %Basophils 0.1 % (0.0-1.0); %Eosinophils 0.7 % (0.0-10.0); %Lymphocytes 10.9 % (21.0-51.0); %Monocytes 9.3 % (0.0-10.0); %Neutrophils 78.9 % (42.0-75.0); Hematocrit 29.7 % (36.0-47.0); Hemoglobin 9.6 g/dL (12.0-16.0); Mean Corpuscular HGB CONC 32.3 g/dL (32.0-36.0); Mean Corpuscular Hemoglobin 28.9 pg (27.0-31.0); Mean Corpuscular Volume 89.5 fL (78.0-98.0); Mean Platelet Volume 12.3 fL (7.4-10.4); Platelet Count 184 10x3/uL (130-400); RBC Distribution Width 14.5 % (11.5-14.5); Red Blood Cell (RBC) Count 3.32 mill/uL (4.20-5.40)
[2024-02-19 05:39] LABS: Calcium 6.7 mg/dL (7.8-10.44)
[2024-02-19 05:49] LABS: ALT (SGPT) 53 U/L (8-55); AST (SGOT) 26 U/L (5-34); Albumin 2.2 g/dL (3.4-4.8); Alkaline Phosphatase 169 U/L (40-110); Anion Gap 14 mmol/L (10-20); BUN (Urea Nitrogen) 58 mg/dL (9.8-20.1); Bilirubin, Total 0.5 mg/dL (0.2-1.2); Calc. Creatinine Clearance 27 mL/min (70-130); Carbon Dioxide 28 mmol/L (23-31); Chloride 99 mmol/L (98-107); Estimated GFR 18; Glucose 338 mg/dL (80-115); Magnesium 1.9 mg/dL (1.6-2.6); Potassium 3.5 mmol/L (3.5-5.1); Protein, Total 5.2 g/dL (5.8-8.1); Sodium 137 mmol/L (136-145)
[2024-02-19] MEDS: Sodium Chloride 0.9% 1,000 ML IV SCH (08:50)
[2024-02-19] MEDS ORDERED: Non-Formulary Item 1 EACH (Gabapentin [Gabapentin] 800 MG Tablet) PO SCH (09:25)
[2024-02-19] MEDS: Fluconazole 100 MG TAB PO SCH (12:13)
[2024-02-19] MEDS: Insulin Lispro 100 UNIT/ML 10 ML VIAL SC PRN (20:47)
[2024-02-19] MEDS: HYDROcodone/Acetaminophen 5/325 mg Tablet PO PRN (20:51)
[2024-02-20 05:32] LABS: #Basophils Less than 0.03 10x3/uL (0.0-0.2); %Basophils 0.2 % (0.0-1.0); %Eosinophils 0.6 % (0.0-10.0); %Lymphocytes 15.8 % (21.0-51.0); %Monocytes 10.3 % (0.0-10.0); %Neutrophils 72.4 % (42.0-75.0); Hematocrit 29.6 % (36.0-47.0); Hemoglobin 9.4 g/dL (12.0-16.0); Mean Corpuscular HGB CONC 31.8 g/dL (32.0-36.0); Mean Corpuscular Hemoglobin 28.6 pg (27.0-31.0); Mean Platelet Volume 11.4 fL (7.4-10.4); Platelet Count 226 10x3/uL (130-400); RBC Distribution Width 14.1 % (11.5-14.5); Red Blood Cell (RBC) Count 3.29 mill/uL (4.20-5.40)
[2024-02-20 06:16] LABS: ALT (SGPT) 34 U/L (8-55); AST (SGOT) 17 U/L (5-34); Albumin 1.9 g/dL (3.4-4.8); Alkaline Phosphatase 133 U/L (40-110); Anion Gap 13 mmol/L (10-20); BUN (Urea Nitrogen) 41 mg/dL (9.8-20.1); Bilirubin, Total 0.7 mg/dL (0.2-1.2); Calc. Creatinine Clearance 46 mL/min (70-130); Calcium 7.5 mg/dL (7.8-10.44); Carbon Dioxide 30 mmol/L (23-31); Chloride 103 mmol/L (98-107); Estimated GFR 34; Globulin 3.1 g/dL (2.4-3.5); Glucose 207 mg/dL (80-115); Magnesium 1.9 mg/dL (1.6-2.6); Potassium 3.7 mmol/L (3.5-5.1); Sodium 142 mmol/L (136-145)
[2024-02-20 07:53] VITALS: BP 148/79; TEMP 98.2
[2024-02-20] MEDS: Ferrous Sulfate 325 MG TAB PO SCH (08:40)
[2024-02-20] MEDS: Gabapentin 400 MG CAP PO SCH (08:40)
== END 2024-02-20 11:30 | disposition home or self-care (01) | DRG 871 ==
LOC: ERS 17:03 → CCU 19:07 → T4-A 02-18 14:57
PROVIDERS: ADMIT Internal Medicine; ATTEND Family Medicine
PROC: 4A133R1 Monitoring of Arterial Saturation, Peripheral, Percutaneous Approach (ICD-10-PCS; principal; 2024-02-17)
PROC: 3E03329 Introduction of Other Anti-infective into Peripheral Vein, Percutaneous Approach (ICD-10-PCS; 2024-02-17)
PROC: 3E033XZ Introduction of Vasopressor into Peripheral Vein, Percutaneous Approach (ICD-10-PCS; 2024-02-17)
DX: A41.9 Sepsis, unspecified organism (principal); G92.8 Other toxic encephalopathy; R65.21 Severe sepsis with septic shock; J15.69 Pneumonia due to other Gram-negative bacteria; N39.0 Urinary tract infection, site not specified; N17.9 Acute kidney failure, unspecified; E87.20 Acidosis, unspecified; F11.20 Opioid dependence, uncomplicated; E11.9 Type 2 diabetes mellitus without complications; F32.A Depression, unspecified; E83.51 Hypocalcemia; F41.9 Anxiety disorder, unspecified; Z90.710 Acquired absence of both cervix and uterus; Z98.84 Bariatric surgery status; E87.5 Hyperkalemia; G89.4 Chronic pain syndrome; B37.9 Candidiasis, unspecified; Z88.0 Allergy status to penicillin; Z88.8 Allergy status to other drugs, medicaments and biological substances
CPT/HCPCS: 36415; 36416; 36600; 71250; 71275; 74177; 76770; 80053; 80074; 80143; 80202; 80306; 80307; 82140; 82306; 82550; 82805; 83605; 83735; 83880; 84484; 85025; 87040; 87081; 87086; 87449; 87899; 93005; 94760; 96361; 96365; 96366; 96368; 96374; 96375; A4217; J0132; J0692; J1644; J1815; J1885; J2272; J2310; J2405; J3370; J3370-JW; J7030; J7050; J7070; Q9967

== ENCOUNTER 2024-02-29 20:09 | Emergency (ER) | payer MEDICARE ==
[2024-02-29 20:38] LABS: Bacteria/HPF None Seen HPF (None Seen); CAUTI Indications for Culture Pelvic or flank pain; RBC/HPF Greater than 50 HPF (0-3)
[2024-02-29 20:39] LABS: Clarity Cloudy (Clear); Specific Gravity, Urine 1.018 (1.002-1.036)
[2024-02-29 20:40] LABS: Bilirubin Unable to Interpret (Negative); Blood, Urine Unable to Interpret (Negative); Glucose, Urine (Dipstick) Unable to Interpret mg/dL (Negative); Ketone, Urine Unable to Interpret mg/dL (Negative); Leukocyte Unable to Interpret Leu/uL (Negative); Nitrite Unable to Interpret (Negative); Protein, Urine (Dipstick) Unable to Interpret mg/dL (Neg-Trace); Urobilinogen UNABLE TO INTERPRET mg/dL (Less than 2); pH, Urine 6.2 (5.0-9.0)
[2024-02-29 20:41] LABS: Urine Culture Reflex Yes Yes
[2024-02-29 20:53] LABS: #Basophils 0.05 10x3/uL (0.0-0.2); %Basophils 0.4 % (0.0-1.0); %Eosinophils 1.2 % (0.0-10.0); %Lymphocytes 14.2 % (21.0-51.0); %Neutrophils 77.8 % (42.0-75.0); Hemoglobin 10.2 g/dL (12.0-16.0); Mean Corpuscular HGB CONC 30.9 g/dL (32.0-36.0); Mean Corpuscular Hemoglobin 28.3 pg (27.0-31.0); Mean Corpuscular Volume 91.4 fL (78.0-98.0); Platelet Count 225 10x3/uL (130-400); RBC Distribution Width 13.4 % (11.5-14.5); Red Blood Cell (RBC) Count 3.61 mill/uL (4.20-5.40)
[2024-02-29] MEDS ORDERED: Ondansetron PF 4 MG/2 ML Vial ONE ×2 (21:04→21:33)
[2024-02-29] MEDS ORDERED: fentaNYL 50 mcg/mL 1 mL Vial ONE (21:04)
[2024-02-29 21:09] LABS: ALT (SGPT) 12 U/L (8-55); AST (SGOT) 12 U/L (5-34); Albumin 2.6 g/dL (3.4-4.8); Alkaline Phosphatase 115 U/L (40-110); Anion Gap 15 mmol/L (10-20); BUN (Urea Nitrogen) 17 mg/dL (9.8-20.1); Bilirubin, Total 0.3 mg/dL (0.2-1.2); Calc. Creatinine Clearance 0 mL/min (70-130); Carbon Dioxide 24 mmol/L (23-31); Chloride 108 mmol/L (98-107); Estimated GFR 74; Globulin 3.6 g/dL (2.4-3.5); Glucose 235 mg/dL (80-115); Lipase 45 U/L (8-78); Potassium 2.7 mmol/L (3.5-5.1); Protein, Total 6.2 g/dL (5.8-8.1); Sodium 144 mmol/L (136-145)
[2024-02-29] MEDS ORDERED: Potassium Chloride 20 MEQ TAB ONE (21:49)
== END 2024-02-29 22:41 | disposition home or self-care (01) ==
LOC: ERS 20:09
DX: R07.81 Pleurodynia (principal); J90 Pleural effusion, not elsewhere classified; E11.9 Type 2 diabetes mellitus without complications; Z79.4 Long term (current) use of insulin; Z79.899 Other long term (current) drug therapy
CPT/HCPCS: 74176; 80053; 81001; 83690; 85025; 87086; J2405; J3010; 36415; 96374

== ENCOUNTER 2025-01-31 04:50 | Inpatient (IN) | payer MEDICARE, BC ==
[2025-01-31] MEDS ORDERED: diphenhydrAMINE 50 MG/ML VIAL ONE (05:34)
[2025-01-31] MEDS ORDERED: Metoclopramide HCl 10 MG (2 mL) VIAL ONE (05:35)
[2025-01-31 06:22] LABS: #Basophils 0.03 10x3/uL (0.0-0.2); #Eosinophils 0.10 10x3/uL (0.0-0.7); #Monocytes 0.66 10x3/uL (0.11-0.59); #Neutrophils 3.13 10x3/uL (1.40-6.50); %Basophils 0.5 % (0.0-1.0); %Eosinophils 1.7 % (0.0-10.0); %Lymphocytes 33.3 % (21.0-51.0); %Monocytes 11.2 % (0.0-10.0); %Neutrophils 53.0 % (42.0-75.0); Hematocrit 34.6 % (36.0-47.0); Hemoglobin 11.4 g/dL (12.0-16.0); Mean Corpuscular Hemoglobin 28.9 pg (27.0-31.0); Mean Corpuscular Volume 87.6 fL (78.0-98.0); Platelet Count 157 10x3/uL (130-400); Red Blood Cell (RBC) Count 3.95 mill/uL (4.20-5.40); White Blood Cell (WBC) Count 5.91 10x3/uL (4.8-10.8)
[2025-01-31 06:47] LABS: ALT (SGPT) 17 U/L (Less than 34); AST (SGOT) 30 U/L (11-34); Albumin 3.3 g/dL (3.1-4.5); Alkaline Phosphatase 165 U/L (40-110); Anion Gap 12 mmol/L (10-20); BUN (Urea Nitrogen) 12 mg/dL (9.8-20.1); Bilirubin, Total 0.6 mg/dL (0.3-1.2); Calc. Creatinine Clearance 0 mL/min (70-130); Calcium 8.6 mg/dL (7.8-10.44); Carbon Dioxide 20 mmol/L (23-31); Chloride 105 mmol/L (98-107); Globulin 2.9 g/dL (2.4-3.5); Glucose 389 mg/dL (80-115); Potassium 3.7 mmol/L (3.5-5.1); Sodium 133 mmol/L (136-145)
[2025-01-31] MEDS ORDERED: hydrALAZINE 20 MG/ML VIAL SLOW IVP PRN (07:59)
[2025-01-31] MEDS ORDERED: Ondansetron PF 4 MG/2 ML Vial IVP PRN (07:59)
[2025-01-31] MEDS ORDERED: Bisacodyl 10 MG SUPP PR PRN (07:59)
[2025-01-31] MEDS ORDERED: Senokot S 8.6-50 MG TAB PO PRN (07:59)
[2025-01-31 08:03] LABS: CAUTI Indications for Culture Dysuria,urgency,freq; Glucose, Urine (Dipstick) Greater than 1000 mg/dL (Negative); Leukocyte 250 Leu/uL (Negative); Protein, Urine (Dipstick) Negative (Neg-Trace); RBC/HPF 0-3 HPF (0-3); WBC/HPF 21-50 HPF (0-3); Yeast-Budding 2+ HPF (None Seen)
[2025-01-31 08:13] LABS: Bacteria/HPF 1+ HPF (None Seen); Specific Gravity, Urine 1.010 (1.005-1.030)
[2025-01-31 08:14] LABS: Urine Culture Reflex Yes Yes
[2025-01-31 08:44] VITALS: BMI 27.8
[2025-01-31] MEDS ORDERED: Aspirin Chewable 81 MG TAB ONE (09:25)
[2025-01-31] MEDS ORDERED: Iopamidol 370 76% 100 ML VIAL ONE (11:00)
[2025-01-31 11:19] LABS: INR-International Normal Ratio 0.9; Prothrombin Time 12.2 sec (12.0-14.7)
[2025-01-31 11:20] LABS: PTT 25.4 sec (22.9-36.1)
[2025-01-31] MEDS: Gabapentin 400 MG CAP PO PRN (22:24)
[2025-01-31] MEDS: Calcium Carbonate 600 MG + Vit D TAB PO SCH (22:25)
[2025-01-31] MEDS: Acetaminophen 325 MG TAB PO PRN (22:25)
[2025-01-31] MEDS: Topiramate 100 MG TAB PO SCH (22:26)
[2025-02-01 04:25] LABS: #Basophils 0.03 10x3/uL (0.0-0.2); #Eosinophils 0.11 10x3/uL (0.0-0.7); #Monocytes 0.67 10x3/uL (0.11-0.59); #Neutrophils 2.67 10x3/uL (1.40-6.50); %Basophils 0.5 % (0.0-1.0); %Eosinophils 1.9 % (0.0-10.0); %Lymphocytes 39.0 % (21.0-51.0); %Monocytes 11.7 % (0.0-10.0); %Neutrophils 46.6 % (42.0-75.0); Hematocrit 33.0 % (36.0-47.0); Hemoglobin 10.4 g/dL (12.0-16.0); Mean Corpuscular Hemoglobin 28.5 pg (27.0-31.0); Mean Corpuscular Volume 90.4 fL (78.0-98.0); Platelet Count 259 10x3/uL (130-400); Red Blood Cell (RBC) Count 3.65 mill/uL (4.20-5.40); White Blood Cell (WBC) Count 5.74 10x3/uL (4.8-10.8)
[2025-02-01 04:43] LABS: Anion Gap 9 mmol/L (10-20); BUN (Urea Nitrogen) 13 mg/dL (9.8-20.1); Calc. Creatinine Clearance 83 mL/min (70-130); Calcium 8.8 mg/dL (7.8-10.44); Carbon Dioxide 24 mmol/L (23-31); Cardiac Risk 3.0 (Less than 4.5); Chloride 109 mmol/L (98-107); Cholesterol 132 mg/dl (< 200 Desired); Glucose 272 mg/dL (80-115); HDL Cholesterol 44 mg/dL (>60 Neg Risk); LDL Cholesterol, Calculated 72 mg/dL; Magnesium 2.0 mg/dL (1.6-2.6); Potassium 3.7 mmol/L (3.5-5.1); Sodium 138 mmol/L (136-145); Triglycerides 81 mg/dL (Less than 150)
[2025-02-01 04:55] LABS: ALT (SGPT) 16 U/L (Less than 34); AST (SGOT) 26 U/L (11-34); Albumin 3.0 g/dL (3.1-4.5); Alkaline Phosphatase 148 U/L (40-110); Bilirubin, Direct 0.1 mg/dL (0.1-0.3); Bilirubin, Total 0.2 mg/dL (0.3-1.2)
[2025-02-01] MEDS: Ferrous Sulfate 325 MG TAB PO SCH (09:25)
[2025-02-01] MEDS: PNEUMOC 20-VAL CONJ-DIP CRM/PF 0.5 ML SYRINGE IM ONE (09:26)
[2025-02-01] MEDS: Prochlorperazine 10 MG/2 ML VIAL IVP SCH (17:17)
[2025-02-01] MEDS: Metoclopramide HCl 10 MG (2 mL) VIAL IVP SCH (17:17)
[2025-02-01] MEDS: SODIUM CHLORIDE 0.9% IVPB SCH (17:55)
[2025-02-01] MEDS: METHYLPREDNISOLONE SOD SUCC IVPB SCH (17:55)
[2025-02-02 03:58] LABS: #Basophils Less than 0.03 10x3/uL (0.0-0.2); #Eosinophils Less than 0.03 10x3/uL (0.0-0.7); #Monocytes 0.07 10x3/uL (0.11-0.59); #Neutrophils 5.28 10x3/uL (1.40-6.50); %Basophils 0.2 % (0.0-1.0); %Eosinophils 0.0 % (0.0-10.0); %Lymphocytes 13.5 % (21.0-51.0); %Monocytes 1.1 % (0.0-10.0); %Neutrophils 84.9 % (42.0-75.0); Hematocrit 35.0 % (36.0-47.0); Hemoglobin 10.8 g/dL (12.0-16.0); Mean Corpuscular Hemoglobin 27.8 pg (27.0-31.0); Mean Corpuscular Volume 90.0 fL (78.0-98.0); Platelet Count 248 10x3/uL (130-400); Red Blood Cell (RBC) Count 3.89 mill/uL (4.20-5.40); White Blood Cell (WBC) Count 6.22 10x3/uL (4.8-10.8)
[2025-02-02 04:22] LABS: Anion Gap 15 mmol/L (10-20); BUN (Urea Nitrogen) 17 mg/dL (9.8-20.1); Calc. Creatinine Clearance 66 mL/min (70-130); Calcium 8.9 mg/dL (7.8-10.44); Carbon Dioxide 20 mmol/L (23-31); Chloride 110 mmol/L (98-107); Glucose 380 mg/dL (80-115); Magnesium 1.9 mg/dL (1.6-2.6); Potassium 4.2 mmol/L (3.5-5.1); Sodium 141 mmol/L (136-145)
[2025-02-02] MEDS ORDERED: Dextrose 50% Abboject 50 ML SYRINGE SLOW IVP PRN (06:03)
[2025-02-02] MEDS ORDERED: Glucagon 1 MG/ML KIT IM PRN (06:03)
[2025-02-02] MEDS: cefTRIAXone\\ROCEPHIN 1 GM in Sodium Chloride 0.9% 100 ML IVPB SCH (06:29)
[2025-02-02] MEDS: Insulin Glargine 30 UNITS/0.3 ML VIAL SC SCH (10:07)
[2025-02-02 16:43] VITALS: BP 110/63; TEMP 97.8
[2025-02-02] MEDS ORDERED: Insulin Glargine 30 UNITS/0.3 ML VIAL SC SCH (21:00)
== END 2025-02-02 19:20 | disposition home or self-care (01) | DRG 103 ==
LOC: ERS 04:50 → ERHOLD 08:10 → 2SE 14:19
PROVIDERS: ADMIT Family Medicine; ATTEND Student in an Organized Health Care Education/Training Program
PROC: 3E0234Z Introduction of Serum, Toxoid and Vaccine into Muscle, Percutaneous Approach (ICD-10-PCS; 2025-02-01)
PROC: 3E03329 Introduction of Other Anti-infective into Peripheral Vein, Percutaneous Approach (ICD-10-PCS; principal; 2025-02-02)
DX: G43.919 Migraine, unspecified, intractable, without status migrainosus (principal); G99.2 Myelopathy in diseases classified elsewhere; G44.86 Cervicogenic headache; M48.02 Spinal stenosis, cervical region; E11.9 Type 2 diabetes mellitus without complications; G89.29 Other chronic pain; M54.9 Dorsalgia, unspecified; Z96.652 Presence of left artificial knee joint; M50.30 Other cervical disc degeneration, unspecified cervical region; Z23 Encounter for immunization; R91.1 Solitary pulmonary nodule; R82.90 Unspecified abnormal findings in urine; Z59.71 Insufficient health insurance coverage; Z88.0 Allergy status to penicillin; Z88.8 Allergy status to other drugs, medicaments and biological substances; Z98.84 Bariatric surgery status; Z98.890 Other specified postprocedural states; Z90.49 Acquired absence of other specified parts of digestive tract; Z98.1 Arthrodesis status; H53.47 Heteronymous bilateral field defects; R27.0 Ataxia, unspecified; R01.1 Cardiac murmur, unspecified; Z88.5 Allergy status to narcotic agent
CPT/HCPCS: 0042T; 36415; 36416; 70450; 70496; 70498; 70543; 70551; 70553; 71045; 71046; 72141; 76376; 80048; 80053; 80061; 80076; 81001; 83036; 83735; 84443; 84484; 85025; 85610; 85730; 86141; 87077; 87086; 87186; 93005; 94760; 96361; 96374; 96375; J0696; J0780; J1200; J1815; J2060; J2765; J2930; Q9967

== ENCOUNTER 2025-02-05 08:44 | Emergency (ER) | payer BC ==
[2025-02-05] MEDS ORDERED: Ketorolac Tromethamine 30 MG (1 mL) VIAL ONE (10:24)
[2025-02-05] MEDS ORDERED: diphenhydrAMINE 50 MG/ML VIAL ONE (10:24)
[2025-02-05] MEDS ORDERED: Metoclopramide HCl 10 MG (2 mL) VIAL ONE (10:24)
[2025-02-05 10:47] LABS: #Basophils 0.03 10x3/uL (0.0-0.2); #Eosinophils 0.11 10x3/uL (0.0-0.7); #Monocytes 0.59 10x3/uL (0.11-0.59); #Neutrophils 3.35 10x3/uL (1.40-6.50); %Basophils 0.5 % (0.0-1.0); %Eosinophils 1.7 % (0.0-10.0); %Lymphocytes 36.3 % (21.0-51.0); %Monocytes 9.1 % (0.0-10.0); %Neutrophils 51.9 % (42.0-75.0); Hematocrit 36.6 % (36.0-47.0); Hemoglobin 11.2 g/dL (12.0-16.0); Mean Corpuscular Hemoglobin 27.7 pg (27.0-31.0); Mean Corpuscular Volume 90.6 fL (78.0-98.0); Platelet Count 250 10x3/uL (130-400); Red Blood Cell (RBC) Count 4.04 mill/uL (4.20-5.40); White Blood Cell (WBC) Count 6.45 10x3/uL (4.8-10.8)
[2025-02-05 11:04] LABS: ALT (SGPT) 21 U/L (Less than 34); AST (SGOT) 29 U/L (11-34); Albumin 3.2 g/dL (3.1-4.5); Alkaline Phosphatase 126 U/L (40-110); Anion Gap 11 mmol/L (10-20); BUN (Urea Nitrogen) 18 mg/dL (9.8-20.1); Bilirubin, Total 0.4 mg/dL (0.3-1.2); Calc. Creatinine Clearance 0 mL/min (70-130); Calcium 9.0 mg/dL (7.8-10.44); Carbon Dioxide 27 mmol/L (23-31); Chloride 109 mmol/L (98-107); Globulin 2.9 g/dL (2.4-3.5); Glucose 226 mg/dL (80-115); Potassium 3.5 mmol/L (3.5-5.1); Sodium 143 mmol/L (136-145)
== END 2025-02-05 13:55 | disposition home or self-care (01) ==
LOC: ERS 08:44
DX: G43.909 Migraine, unspecified, not intractable, without status migrainosus (principal); R29.700 NIHSS score 0; E11.9 Type 2 diabetes mellitus without complications; Z79.899 Other long term (current) drug therapy; Z79.4 Long term (current) use of insulin
CPT/HCPCS: 70450; 80053; 85025; 93005; 96374; 96375; J1200; J1885; J2765